=== PATIENT | female | born 1990 | race Caucasian/White ===

== ENCOUNTER 2023-07-14 14:01 | Outpatient (OUT) | payer SELFPAY ==
--- NOTE | 2023-07-14 14:51 | CA_ITS ---
Patient: URVASHI January. Exam Date: 07/14/2023 : 1990 Gender:F Ordering : WILLIAM SEGURA Admission #: [id number] Family : Order #: [id number] CLICK HERE TO VIEW EXAM ECHOCARDIOGRAM REPORT PROCEDURE: CA ECHO DOPPLER COMPLETE INDICATIONS: GREWAL, EDEMA COMPARISON: None. DESCRIPTION: COMPLETE ECHOCARDIOGRAM Real-time transthoracic echocardiography with 2D, M-mode, spectral and color flow Doppler performed. QUALITY: Technical quality was good. LEFT VENTRICLE: Normal chamber size. Mild concentric left ventricular hypertrophy. LV EF: Global left ventricular systolic function is normal. Visual estimation of left ventricular ejection fraction is 55% DIASTOLIC: Normal diastolic function. ATRIAL SEPTUM: Inadequately seen. LEFT ATRIUM: Normal chamber size. RIGHT ATRIUM: Normal chamber size. RIGHT VENTRICLE: Normal chamber size. Normal right ventricular systolic function. TRICUSPID VALVE: Normal mobility and thickness. No stenosis with trivial regurgitation. No evidence of pulmonary hypertension. RVSP 19mmHg MITRAL VALVE: Normal mobility and thickness. No evidence of mitral valve stenosis. Trivial mitral regurgitation. AORTIC VALVE: Normal trileaflet appearance. No visible sclerosis. Normal leaflet mobility. No evidence of aortic valve stenosis. No aortic regurgitation. AORTIC ROOT: Normal diameter and appearance. PULMONIC VALVE: Normal thickness and mobility. No stenosis. Trivial regurgitation. PERICARDIUM: No evidence of pericardial effusion. CONCLUSION: Global left ventricular systolic function is normal; visually estimated ejection fraction is 55 to 60%. Mild left ventricular hypertrophy. Normal diastolic function. The right ventricle is normal in size and systolic function. No significant valvular abnormalities. Adult Echocardiography Procedure Report Left Ventricle LVEDD (3.7 - 5.6 cm): 4.45 cm LVESD (2.2 - 4.0 cm): 3.10 cm LVIVS thickness (0.6 - 1.2 cm): 1.18 cm LVPW thickness (0.5 - 1.0 cm): 1.06 cm e': 0.09 m/s E - e': 4.43 LVOT Max Gradient: 2.42 mm[Hg] LVOT Area (cm2): 0.78 m/s Peak Velocity (LVOT): 0.78 m/s Mean Velocity (LVOT): 0.61 m/s LVOT Diameter 2.24 cm Left Atrium LA Volume Index (2D A2C): 24.54 ml/m2 Left Atrium Systolic Dimension: 3.49 cm Mitral Valve MV E to A Ratio: 0.79 Mitral Valve A-Wave Peak Velocity: 0.51 m/s Mitral Valve E-Wave Peak Velocity: 0.40 m/s Right Ventricle RV Internal Diastolic Dimension: 3.75 cm Aorta AO Root Diam: 3.35 cm Ascending Ao Diam: 3.18 cm Aortic Valve AoV Area (Peak Luciano): 2.68 cm2, 2.68 cm2 AoV Area (VTI): 2.51 cm2, 2.51 cm2 Peak Velocity(Antegrade Flow): 1.15 m/s Peak Gradient(Antegrade Flow): 5.26 mm[Hg] Mean Velocity(Antegrade Flow): 0.83 m/s Mean Gradient(Antegrade Flow): 3.14 mm[Hg] Velocity Time Integral: 21.60 cm Tricuspid Valve Peak Velocity (Regurgitant Flow): 1.87 m/s, 2.03 m/s Pulmonic Valve Mean Gradient: 1.75 mm[Hg], 1.70 mm[Hg] Mean Velocity: 0.62 m/s, 0.62 m/s Peak Velocity: 0.83 m/s Peak Gradient: 2.90 mm[Hg], 2.66 mm[Hg] Right Atrium Right Atrium Systolic Pressure: 34.93 ml, 34.93 ml Dictated by: Valeria Reynolds M.D. on 07/16/2023 at 09:53 Approved by: Valeria Reynolds M.D. on 07/16/2023 at 09:56
== END 2023-07-14 14:02 | disposition home or self-care (01) ==
LOC: CARD 14:06
PROVIDERS: PCP Nurse Practitioner Family; Visit Provider Nurse Practitioner
DX: R06.09 Other forms of dyspnea (principal)
CPT/HCPCS: 93306

== ENCOUNTER 2023-09-06 07:38 | Emergency (ER) | payer BC, SELFPAY ==
[2023-09-06 07:42] VITALS: BP 132/90; PULSE 94; RESP 18; TEMP 36.8; O2SAT 97; BMI 33.7
--- NOTE | 2023-09-06 07:54 | XR_ITS ---
The [address] [address] Patient Name: WELLINGTON LANDIN MRN: [id number] date: 1990 Sex: F Assigned Patient Location: ER Current Patient Location: ER Accession/Order Number: [id number] Exam Date: 09/06/2023 07:58 Report Date: 09/06/2023 08:15 At the request of: CORBIN ALVARADO Procedure: XR chest 1V EXAM: XR chest 1V INDICATION: cough. COMPARISON: None. TECHNIQUE: Single frontal view of the chest FINDINGS: Normal cardiomediastinal contours. No acute infiltrative process. No pleural effusion or pneumothorax. No acute osseous abnormality. XR/XR chest 1V IMPRESSION: No acute cardiopulmonary process. Electronically authenticated by: CARLOS PASCUAL Date: 09/06/2023 08:15
--- NOTE | 2023-09-06 07:55 | ED_ITS ---
HPI - General Adult General Chief complaint: Nausea/Vomiting/Diarrhea Stated complaint: NAUSEA AND VOMIT Time Seen by Provider: 09/06/23 07:41 Source: patient Mode of arrival: walk-in History of Present Illness HPI narrative: 33-year-old female presents for cough and vomiting and headache. She's been sick for a week and it started with cough. Initially it was nonproductive and now she is coughing up phlegm but she swallows it so she never sees it. Sided headache and has had some vomiting as well. No complaints to me of diarrhea. The headache is severe. Related Data Home Medications Medication Instructions Recorded Confirmed metoprolol tartrate 25 mg tablet 25 mg PO DAILY 09/06/23 09/06/23 sertraline 100 mg tablet 100 mg PO Q24H 09/06/23 09/06/23 Previous Rx's Medication Instructions Recorded khjbpzuyru-avvgbytmvirpw-gixqbinf 1 cap PO Q6H PRN pain #20 caps 09/06/23 50 mg-300 mg-40 mg capsule (Fioricet) ondansetron 4 mg disintegrating 4 mg PO Q6H PRN nausea and 09/06/23 tablet vomiting #20 tabs Allergies Allergy/AdvReac Type Severity Reaction Status Date / Time nalbuphine [From Nubain] Allergy Severe Verified 09/06/23 07:46 acetaminophen [From Vicodin] AdvReac Severe Vomiting Verified 09/06/23 07:46 hydrocodone [From Vicodin] AdvReac Severe Vomiting Verified 09/06/23 07:46 Review of Systems ROS Narrative A ten point review of systems is negative except as noted above. Exam Narrative Exam Narrative: Nurses note and vital signs reviewed and patient is not hypoxic. General: The patient appears well and in no apparent distress. Patient is resting comfortably on cart. Skin: Warm, dry, no pallor noted. There is no rash noted. Head: Normocephalic, atraumatic, neck supple, no nuchal rigidity Eye: Normal conjunctiva, no drainage Ears, Nose, Mouth, and Throat: oral mucosa is moist. Nares patent. no pharyngeal erythema or exudate Cardiovascular: Regular Rate and Rhythm Respiratory: Patient is in no distress, no accessory muscle use, lungs are clear to auscultation, no wheezing, rales or rhonchi Back: non-tender GI: soft and nontender Musculoskeletal: The patient has no evidence of calf tenderness, no pitting edema, symmetrical pulses noted bilaterally Neurological: A&O normal speech Psychiatric: Cooperative Constitutional Vital Signs, click to edit/add: Last Vital Signs Temp 98.3 F 09/06/23 07:42 Pulse 94 H 09/06/23 07:42 Resp 18 09/06/23 07:42 BP 132/90 09/06/23 07:42 Pulse Ox 97 09/06/23 07:42 O2 Del Method Room Air 09/06/23 07:42 Course Vital Signs Vital signs: Vital Signs Temperature 98.3 F 09/06/23 07:42 Pulse Rate 94 H 09/06/23 07:42 Respiratory Rate 18 09/06/23 07:42 Blood Pressure 132/90 09/06/23 07:42 Pulse Oximetry 97 09/06/23 07:42 Oxygen Delivery Method Room Air 09/06/23 07:42 Temperature 98.3 F 09/06/23 07:42 Pulse Rate 94 H 09/06/23 07:42 Respiratory Rate 18 09/06/23 07:42 Blood Pressure 132/90 09/06/23 07:42 Pulse Oximetry 97 09/06/23 07:42 Oxygen Delivery Method Room Air 09/06/23 07:42 Medical Decision Making MDM Narrative Medical decision making narrative: patient's workup is negative. She was given IV fluids and Toradol and Zofran and is disscharged home on Fioricet and Zofran. Antibiotic not indicated. My clinical impressions that she has a viral illness. Treatment diagnosis and follow-up were discussed with the patient. Differential Diagnosis Differential Diagnosis: pneumonia, Covid, strep throat, viral illness Lab Data Lab results reviewed: Yes I reviewed the patient's lab results Labs: Lab Results 09/06/23 09/06/23 Range/Units 08:09 08:12 WBC 8.2 (4.0-11.0) 10^3/uL RBC 4.36 (4.20-5.40) 10^6/uL Hgb 13.0 (12.0-16.0) g/dL Hct 39.8 (36.0-48.0) % MCV 91.3 (81.0-99.0) fL MCH 29.8 (26.7-34.0) pg MCHC 32.7 (29.9-35.2) g/dL RDW 13.2 (11.0-15.0) % Plt Count 252 (150-450) 10^3/uL MPV 10.7 (9.5-13.5) fL Neut % (Auto) 66.1 (43.0-75.0) % Lymph % (Auto) 23.6 (20.5-60.0) % [place] % (Auto) 5.3 (1.7-12.0) % Eos % (Auto) 4.4 (0.9-7.0) % Baso % (Auto) 0.4 (0.2-2.0) % Neut # (Auto) 5.4 (1.4-6.5) 10^3/uL Lymph # (Auto) 1.9 (1.2-3.8) 10^3/uL [place] # (Auto) 0.4 (0.3-0.8) 10^3/uL Eos # (Auto) 0.4 (0.0-0.7) 10^3/uL Baso # (Auto) 0.0 (0.0-0.1) 10^3/uL Abs Immat Gran (auto) 0.02 (0.00-0.03) 10^3/uL Imm/Tot Granulo (auto) 0.2 (0.0-0.5) % Sodium 137 (136-145) mmol/L Potassium 3.7 (3.5-5.1) mmol/L Chloride 103 (98-107) mmol/L Carbon Dioxide 27.0 (21.0-32.0) mmol/L Anion Gap 10.7 BUN 8.0 (7.0-18.0) mg/dL Creatinine 0.56 (0.55-1.02) mg/dL Est GFR ( Amer) >60 (>=60) Est GFR (Non-Af Amer) >60 (>=60) BUN/Creatinine Ratio 14.3 Glucose 111 H (74-106) mg/dL Calcium 8.5 (8.5-10.1) mg/dL SARS-CoV-2 (PCR) Negative (NEGATIVE) Streptococcus Screen Negative Imaging Data Chest x-ray: Radiologist's impression: Procedure: XR chest 1V EXAM: XR chest 1V INDICATION: cough. COMPARISON: None. TECHNIQUE: Single frontal view of the chest FINDINGS: Normal cardiomediastinal contours. No acute infiltrative process. No pleural effusion or pneumothorax. No acute osseous abnormality. IMPRESSION: No acute cardiopulmonary process. Electronically authenticated by: CARLOS PASCUAL Date: 09/06/2023 08:15 Discharge Plan Discharge Chief Complaint: Nausea/Vomiting/Diarrhea Clinical Impression: Viral syndrome Patient Disposition: Home, Self-Care Time of Disposition Decision: 09:02 Condition: Good Mode of Transportation: Private Vehicle Prescriptions / Home Meds: New uoysfpqkkv-aaryvbniqedyp-uxrc [Fioricet] 50-300-40 mg capsule 1 cap PO Q6H PRN (Reason: pain) Qty: 20 0RF ondansetron 4 mg tablet,disintegrating 4 mg PO Q6H PRN (Reason: nausea and vomiting) Qty: 20 0RF No Action metoprolol tartrate 25 mg tablet 25 mg PO DAILY sertraline 100 mg tablet 100 mg PO Q24H Instructions: Viral Syndrome (ED) Stand Alone Forms: Portal Instructions Referrals: KAMRAN VERA [Primary Care Provider] - 1 week
[2023-09-06] MEDS: 0.9 % SODIUM CHLORIDE 1,000 ML 1000 ML IV (08:06)
[2023-09-06] MEDS: ONDANSETRON PF 4 MG/2 ML VIAL IV (08:06)
[2023-09-06] MEDS: KETOROLAC TROMETHAMINE 30 MG/ML VIAL IVP (08:06)
[2023-09-06 08:36] LABS: Basophils Percent Auto 0.4 % (0.2-2.0); Eosinophils Absolute Auto 0.4 10^3/uL (0.0-0.7); Eosinophils Percent Auto 4.4 % (0.9-7.0); Hematocrit 39.8 % (36.0-48.0); Immature Granulocytes Abs Auto 0.02 10^3/uL (0.00-0.03); Immature Granulocytes Pct Auto 0.2 % (0.0-0.5); Lymphocytes Absolute Auto 1.9 10^3/uL (1.2-3.8); Lymphocytes Percent Auto 23.6 % (20.5-60.0); Mean Corpuscular HGB Conc 32.7 g/dL (29.9-35.2); Mean Corpuscular Hemoglobin 29.8 pg (26.7-34.0); Mean Corpuscular Volume 91.3 fL (81.0-99.0); Mean Platelet Volume 10.7 fL (9.5-13.5); Monocytes Absolute Auto 0.4 10^3/uL (0.3-0.8); Monocytes Percent Auto 5.3 % (1.7-12.0); Neutrophils Absolute Auto 5.4 10^3/uL (1.4-6.5); Neutrophils Percent Auto 66.1 % (43.0-75.0); Platelet Count 252 10^3/uL (150-450); Red Blood Count 4.36 10^6/uL (4.20-5.40); Red Cell Distribution Width 13.2 % (11.0-15.0); White Blood Count 8.2 10^3/uL (4.0-11.0)
[2023-09-06 08:42] LABS: Strep A Antigen Screen Negative
[2023-09-06 08:43] LABS: Internal Control Within Normal Limits
[2023-09-06 08:44] LABS: Anion Gap 10.7; BUN Creatinine Ratio 14.3; Calcium 8.5 mg/dL (8.5-10.1); Chloride 103 mmol/L (98-107); Estimated GFR (African America >60 (>=60); Estimated GFR (Non-African Ame >60 (>=60); Glucose 111 mg/dL (74-106); Potassium 3.7 mmol/L (3.5-5.1); Sodium 137 mmol/L (136-145)
[2023-09-06 08:56] LABS: SARS-CoV-2 Ag NEGATIVE (NEGATIVE)
[2023-09-06 13:20] LABS: SARS-CoV-2 NAA NOT DETECTED (NOT DETECTE)
== END 2023-09-06 09:13 | disposition home or self-care (01) ==
PROVIDERS: Emergency Provider Emergency Medicine; PCP Nurse Practitioner Family
DX: B34.9 Viral infection, unspecified (principal); Z20.822 Contact with and (suspected) exposure to COVID-19; Z79.899 Other long term (current) drug therapy
CPT/HCPCS: 36415; 71045; 80048; 85025; 87070; 87635; 87811; 87880; 96361; 96374; 96375; 99285

== ENCOUNTER 2023-09-16 12:39 | Outpatient (OUT) | payer BC, SELFPAY ==
[2023-09-16 13:07] LABS: Basophils Percent Auto 0.6 % (0.2-2.0); Eosinophils Absolute Auto 0.4 10^3/uL (0.0-0.7); Eosinophils Percent Auto 5.2 % (0.9-7.0); Hemoglobin 12.5 g/dL (12.0-16.0); Immature Granulocytes Abs Auto 0.02 10^3/uL (0.00-0.03); Immature Granulocytes Pct Auto 0.3 % (0.0-0.5); Lymphocytes Absolute Auto 1.8 10^3/uL (1.2-3.8); Lymphocytes Percent Auto 27.4 % (20.5-60.0); Mean Corpuscular HGB Conc 32.1 g/dL (29.9-35.2); Mean Corpuscular Hemoglobin 29.2 pg (26.7-34.0); Mean Corpuscular Volume 91.1 fL (81.0-99.0); Mean Platelet Volume 10.2 fL (9.5-13.5); Monocytes Absolute Auto 0.5 10^3/uL (0.3-0.8); Monocytes Percent Auto 6.9 % (1.7-12.0); Neutrophils Percent Auto 59.6 % (43.0-75.0); Platelet Count 267 10^3/uL (150-450); Red Blood Count 4.28 10^6/uL (4.20-5.40); Red Cell Distribution Width 13.1 % (11.0-15.0); White Blood Count 6.7 10^3/uL (4.0-11.0)
[2023-09-16 13:51] LABS: Anion Gap 12.3; BUN Creatinine Ratio 16.1; Calcium 8.7 mg/dL (8.5-10.1); Carbon Dioxide 28.7 mmol/L (21.0-32.0); Chloride 102 mmol/L (98-107); Estimated GFR (African America >60 (>=60); Estimated GFR (Non-African Ame >60 (>=60); Glucose 85 mg/dL (74-106); Sodium 139 mmol/L (136-145)
== END 2023-09-16 12:40 | disposition home or self-care (01) ==
LOC: LAB 12:40
PROVIDERS: PCP Family Medicine; Visit Provider Internal Medicine Cardiovascular Disease
DX: Z01.818 Encounter for other preprocedural examination (principal)
CPT/HCPCS: 36415; 80048; 85025

== ENCOUNTER 2023-10-20 14:51 | Emergency (ER) | payer BC, SELFPAY ==
[2023-10-20] VITALS (15 sets, daily range): BP systolic 112–130; BP diastolic 78–97; PULSE 112–163; RESP 11–42; TEMP 37.1; O2SAT 96–99
--- NOTE | 2023-10-20 14:59 | ECG_ITS ---
The [facility] Test Date: 2023-10-20 Pat Name: WELLINGTON LANDIN Department: Room: - Gender: Female [employer]: : 1990 Requested By: CASS JOY Order Number: [id number] Reading MD: CHRISTIANO FARLEY Measurements Intervals [place] Rate: 135 P: 61 [place]: 150 QRS: 107 QRSD: 86 T: 23 QT: 292 QTc: 371 Interpretive Statements 1120 Sinus tachycardia 7100 Abnormal right axis deviation 9140 abnormal rhythm ECG No previous ECG available for comparison Electronically Signed On 10-21-2023 7:06:26 EST by CHRISTIANO FARLEY
--- NOTE | 2023-10-20 14:59 | XR_ITS ---
The [address] [address] Patient Name: WELLINGTON LANDIN MRN: [id number] date: 1990 Sex: F Assigned Patient Location: ER Current Patient Location: ER Accession/Order Number: [id number] Exam Date: 10/20/2023 15:38 Report Date: 10/20/2023 15:55 At the request of: CORBIN ALVARADO Procedure: XR chest 1V EXAM: XR chest 1V HISTORY: SOB, cough COMPARISON: Chest study dated 09/06/2023 TECHNIQUE: AP view of the chest was obtained with portable technique at 3:34 PM. FINDINGS: Heart and mediastinal contours are unremarkable in appearance. No obvious focal infiltrate or consolidation. No obvious pneumothorax. Bony structures appear grossly intact. XR/XR chest 1V IMPRESSION: No acute process seen in the chest. Electronically authenticated by: JANES RUSSELL Date: 10/20/2023 15:55
--- NOTE | 2023-10-20 15:04 | ED_ITS ---
HPI - General Adult General Chief complaint: Upper Respiratory Infection Stated complaint: FLU LIKE SYMPTOMS Time Seen by Provider: 10/20/23 14:54 Source: patient Mode of arrival: walk-in Limitations: no limitations History of Present Illness HPI narrative: 33-year-old female presents to the emergency department for a constellation of symptoms. She is complaining of cough and congestion and she woke up from a nap forty-five minutes ago and her heart was racing she has a history of SVT. she states she had a fever at home today. She's been taking all her medications. She has had these upper respiratory infection symptoms for several months. Related Data Home Medications Medication Instructions Recorded Confirmed metoprolol tartrate 25 mg tablet 25 mg PO DAILY 09/06/23 10/20/23 sertraline 100 mg tablet 100 mg PO Q24H 09/06/23 10/20/23 bupropion HCl 150 mg 24 hr tablet, 150 mg PO DAILY 10/20/23 10/20/23 extended release cetirizine 10 mg tablet 10 mg PO DAILY 10/20/23 10/20/23 Previous Rx's Medication Instructions Recorded cuvqlcydge-uwwzlwbkoylwj-kdlkpvtv 1 cap PO Q6H PRN pain #20 caps 09/06/23 50 mg-300 mg-40 mg capsule (Fioricet) benzonatate 100 mg capsule 100 mg PO TID PRN cough #20 caps 10/20/23 doxycycline hyclate 100 mg capsule 100 mg PO BID 10 days #20 caps 10/20/23 Allergies Allergy/AdvReac Type Severity Reaction Status Date / Time nalbuphine [From Nubain] Allergy Severe Verified 09/06/23 07:46 hydrocodone [From Vicodin] AdvReac Severe Vomiting Verified 09/06/23 07:46 Review of Systems ROS Narrative A ten point review of systems is negative except as noted above. PFSH PFSH Social History Smoking status: Never smoker Exam Narrative Exam Narrative: Nurses note and vital signs reviewed and patient is not hypoxic. General: The patient appears well and in no apparent distress. Patient is resting comfortably on cart. Skin: Warm, dry, no pallor noted. There is no rash noted. Head: Normocephalic, atraumatic Eye: Normal conjunctiva, no drainage Ears, Nose, Mouth, and Throat: oral mucosa is moist. Nares patent. Cardiovascular: Regular Rate and Rhythm, tachycardic Respiratory: Patient is in no distress, no accessory muscle use, lungs are clear to auscultation, no wheezing, rales or rhonchi Back: non-tender GI: soft and nontender Musculoskeletal: The patient has no evidence of calf tenderness, no pitting edema, symmetrical pulses noted bilaterally Neurological: A&O, normal speech Psychiatric: Cooperative Constitutional Vital Signs, click to edit/add: Last Vital Signs Temp 98.8 F 10/20/23 14:55 Pulse 112 H 10/20/23 16:40 Resp 20 10/20/23 16:40 BP 120/79 10/20/23 16:30 Pulse Ox 98 10/20/23 16:40 O2 Del Method Room Air 10/20/23 14:55 Course Vital Signs Vital signs: Vital Signs Temperature 98.8 F 10/20/23 14:55 Pulse Rate 147 H 10/20/23 14:55 Respiratory Rate 18 10/20/23 14:55 Blood Pressure 124/90 10/20/23 14:55 Pulse Oximetry 99 10/20/23 14:55 Oxygen Delivery Method Room Air 10/20/23 14:55 Temperature 98.8 F 10/20/23 14:55 Pulse Rate 112 H 10/20/23 16:40 Respiratory Rate 20 10/20/23 16:40 Blood Pressure 120/79 10/20/23 16:30 Pulse Oximetry 98 10/20/23 16:40 Oxygen Delivery Method Room Air 10/20/23 14:55 Medical Decision Making MDM Narrative Medical decision making narrative: the patient presented tachycardic but her heart rate has come down significantly with IV fluids and she feels improved. Workup is negative including Covid, influenza, and chest x-ray testing. Treatment diagnosis and follow-up were discussed with the patient. Differential Diagnosis Differential Diagnosis: dehydration, Covid, influenza, pneumonia Lab Data Lab results reviewed: Yes I reviewed the patient's lab results Labs: Lab Results 10/20/23 10/20/23 Range/Units 15:03 15:06 WBC 5.1 (4.0-11.0) 10^3/uL RBC 4.40 (4.20-5.40) 10^6/uL Hgb 12.9 (12.0-16.0) g/dL Hct 40.0 (36.0-48.0) % MCV 90.9 (81.0-99.0) fL MCH 29.3 (26.7-34.0) pg MCHC 32.3 (29.9-35.2) g/dL RDW 13.2 (11.0-15.0) % Plt Count 233 (150-450) 10^3/uL MPV 10.7 (9.5-13.5) fL Neut % (Auto) 79.3 H (43.0-75.0) % Lymph % (Auto) 8.4 L (20.5-60.0) % [place] % (Auto) 7.4 (1.7-12.0) % Eos % (Auto) 3.7 (0.9-7.0) % Baso % (Auto) 0.8 (0.2-2.0) % Neut # (Auto) 4.1 (1.4-6.5) 10^3/uL Lymph # (Auto) 0.4 L (1.2-3.8) 10^3/uL [place] # (Auto) 0.4 (0.3-0.8) 10^3/uL Eos # (Auto) 0.2 (0.0-0.7) 10^3/uL Baso # (Auto) 0.0 (0.0-0.1) 10^3/uL Abs Immat Gran (auto) 0.02 (0.00-0.03) 10^3/uL Imm/Tot Granulo (auto) 0.4 (0.0-0.5) % Sodium 138 (136-145) mmol/L Potassium 3.7 (3.5-5.1) mmol/L Chloride 103 (98-107) mmol/L Carbon Dioxide 27.3 (21.0-32.0) mmol/L Anion Gap 11.4 BUN 7.0 (7.0-18.0) mg/dL Creatinine 0.66 (0.55-1.02) mg/dL Est GFR ( Amer) >60 (>=60) Est GFR (Non-Af Amer) >60 (>=60) BUN/Creatinine Ratio 10.6 Glucose 133 H (74-106) mg/dL Calcium 8.4 L (8.5-10.1) mg/dL Serum HCG, Qual Negative (NEGATIVE) SARS-CoV-2 (PCR) Negative (NEGATIVE) Influenza Type A Ag Negative Influenza Type B Ag Negative Imaging Data Chest x-ray: Radiologist's impression: Procedure: XR chest 1V EXAM: XR chest 1V HISTORY: SOB, cough COMPARISON: Chest study dated 09/06/2023 TECHNIQUE: AP view of the chest was obtained with portable technique at 3:34 PM. FINDINGS: Heart and mediastinal contours are unremarkable in appearance. No obvious focal infiltrate or consolidation. No obvious pneumothorax. Bony structures appear grossly intact. IMPRESSION: No acute process seen in the chest. Electronically authenticated by: JANES RUSSELL Date: 10/20/2023 15:55 ECG Data Attestation: I personally reviewed and interpreted this ECG as follows: (EKG on my interpretation shows sinus tachycardia) Discharge Plan Discharge Chief Complaint: Upper Respiratory Infection Clinical Impression: Upper respiratory infection Patient Disposition: Home, Self-Care Time of Disposition Decision: 16:47 Condition: Good Mode of Transportation: Private Vehicle Prescriptions / Home Meds: New doxycycline hyclate 100 mg capsule 100 mg PO BID 10 Days Qty: 20 0RF benzonatate 100 mg capsule 100 mg PO TID PRN (Reason: cough) Qty: 20 0RF No Action bupropion HCl 150 mg tablet extended release 24 hr 150 mg PO DAILY cetirizine 10 mg tablet 10 mg PO DAILY metoprolol tartrate 25 mg tablet 25 mg PO DAILY sertraline 100 mg tablet 100 mg PO Q24H edntcsdusv-mqjtuwrobmddy-yslt [Fioricet] 50-300-40 mg capsule 1 cap PO Q6H PRN (Reason: pain) Qty: 20 0RF Instructions: Upper Respiratory Infection (ED) Stand Alone Forms: Portal Instructions Referrals: CASS JOY [Primary Care Provider] - 1 week
[2023-10-20] MEDS: 0.9 % SODIUM CHLORIDE 1,000 ML 1000 ML IV ×2 (15:13→16:14)
[2023-10-20 15:28] LABS: Basophils Percent Auto 0.8 % (0.2-2.0); Eosinophils Absolute Auto 0.2 10^3/uL (0.0-0.7); Eosinophils Percent Auto 3.7 % (0.9-7.0); Hemoglobin 12.9 g/dL (12.0-16.0); Immature Granulocytes Abs Auto 0.02 10^3/uL (0.00-0.03); Immature Granulocytes Pct Auto 0.4 % (0.0-0.5); Lymphocytes Absolute Auto 0.4 10^3/uL (1.2-3.8); Lymphocytes Percent Auto 8.4 % (20.5-60.0); Mean Corpuscular HGB Conc 32.3 g/dL (29.9-35.2); Mean Corpuscular Hemoglobin 29.3 pg (26.7-34.0); Mean Corpuscular Volume 90.9 fL (81.0-99.0); Mean Platelet Volume 10.7 fL (9.5-13.5); Monocytes Absolute Auto 0.4 10^3/uL (0.3-0.8); Monocytes Percent Auto 7.4 % (1.7-12.0); Neutrophils Absolute Auto 4.1 10^3/uL (1.4-6.5); Neutrophils Percent Auto 79.3 % (43.0-75.0); Platelet Count 233 10^3/uL (150-450); Red Cell Distribution Width 13.2 % (11.0-15.0); White Blood Count 5.1 10^3/uL (4.0-11.0)
[2023-10-20 15:41] LABS: Influenza Virus A Antigen Negative; Influenza Virus B Antigen Negative; Internal Control Within Normal Limits
[2023-10-20 15:42] LABS: SARS-CoV-2 Ag NEGATIVE (NEGATIVE)
[2023-10-20 15:49] LABS: Anion Gap 11.4; BUN Creatinine Ratio 10.6; Calcium 8.4 mg/dL (8.5-10.1); Carbon Dioxide 27.3 mmol/L (21.0-32.0); Chloride 103 mmol/L (98-107); Estimated GFR (African America >60 (>=60); Estimated GFR (Non-African Ame >60 (>=60); Glucose 133 mg/dL (74-106); HCG Qualitative NEGATIVE (NEGATIVE); Potassium 3.7 mmol/L (3.5-5.1); Sodium 138 mmol/L (136-145)
[2023-10-22 16:03] LABS: SARS-CoV-2 NAA NOT DETECTED (NOT DETECTE)
== END 2023-10-20 17:14 | disposition home or self-care (01) ==
PROVIDERS: Emergency Provider Emergency Medicine; PCP Family Medicine
DX: J06.9 Acute upper respiratory infection, unspecified (principal)
CPT/HCPCS: 36415; 71045; 80048; 84703; 85025; 87635; 87804; 87811; 93005; 99285

== ENCOUNTER 2023-10-22 12:38 | Emergency (ER) | payer BC, SELFPAY ==
[2023-10-22 12:45] VITALS: BP 121/89; PULSE 102; RESP 18; TEMP 36.9; O2SAT 98; BMI 33.7
--- OUTSIDE RECORDS SUMMARY | 2023-10-22 12:45 | XMS_ITS | CCD ---
Author Name Unknown Address [address] [place] [address] Organization [facility] Care Team Providers Care Bander And Cellophaner Machine Name Role Phone Ny Vera Unavailable Shivani Rincon Unavailable [place] VERA Admitting Unavailable [place] VERA Attending [facility]available [facility] MIR Primary Care Unavailable [place] VERA Consulting Unavailable NASIM TORRES Admitting Unavailable NASIM TORRES Attending Unavailable NY VERA Primary Care Unavailable NASIM TORRES Consulting Unavailable Radha Nash Unavailable WILLIAM SEGURA Attending Unavailable CHANG GARZA Attending Unavailable CHANG GARZA Admitting Unavailable CHANG GARZA Attending Unavailable CHANG GARZA Referring Unavailable CHANG GARZA Referring Unavailable Rene Costa Attending Unavailable Rene Costa Attending Unavailable Rene Costa Attending Unavailable Allergies Allergy Classification Reported Allergen(s) Allergy Type Date of Onset Reaction(s) Facility (10 sources) Acetaminophen / HYDROcodone; Translations: [Vicodin] Drug Allergy 10-15-20 15 vomiting [facility] Repository (10 sources) Nalbuphine; Translations: [Nubain] Drug Allergy rebound migraine [facility] Repository (8 sources) Triptans Propensity to adverse reactions due to cardiac hx [facility] Other (1 source) Acetaminophen / HYDROcodone; Translations: [HYDROCODONE-ACET AMINOPHEN] Drug Allergy 06-02-20 [facility] Repository (1 source) Nalbuphine; Translations: [NALBUPHINE] Drug Allergy 06-02-20 [facility] Repository (1 source) ADHESIVE TAPE-SILICONES; Translations: [ADHESIVE TAPE-SILICONES] Propensity to adverse reactions to drug (disorder) 09-23-20 [facility] Repository Medications Current Medications Medication Drug Class(es) Dates Sig (Normalized) Sig (Original) cyproheptadine hydrochloride 4 mg oral tablet (8 sources) Start: 06-25-2021 take 1 tablet by mouth every twenty-four hours Cyproheptadine HCl 4 MG 1 tablet Orally qd for 30 days Jun, Active Start: 06-25-2021 Cyproheptadine HCl 4 MG 0.5 tablet for 2 weeks then 1 tablet Orally qd for 30 day(s) Jun, Active dexamethasone 4 mg oral tablet (1 source) Corticosteroid Start: 04-10-2022 Dexamethasone 4 MG 3 tablets daily for 3 days then 2 tablets daily for 3 days then 1 tablet daily for 3 days Orally Once a day for 9 days Apr, Active fluticasone propionate 0.05 mg/actuat metered dose nasal spray (1 source) Corticosteroid Start: 04-10-2022 take 1 spray(s) nasal route once daily Fluticasone Propionate 50 MCG/ACT 1 spray in each nostril Nasally Once a day for 30 day(s) Apr, Active metoprolol tartrate 25 mg oral tablet (8 sources) beta-Adrenergic Mike take 1 tablet by mouth every twelve hours Metoprolol Tartrate 25 MG 1 tablet with food Orally Twice a day take daily and may take up to two Active sertraline 100 mg oral tablet (8 sources) Serotonin Reuptake Inhibitor Start: 03-02-2020 take 1.5 tablets by mouth every twenty-four hours Zoloft 100 MG 1.5 tablet Orally Once a day for 90 days March, Active Completed/Discontinued Medications Medication Drug Class(es) Dates Sig (Normalized) Sig (Original) betamethasone 0.5 mg/ml / clotrimazole 10 mg/ml topical cream (3 sources) Azole Antifungal, Corticosteroid Start: 05-06-2022 Clotrimazole-Beta methasone 1-0.05 % 1 application Externally Twice a day for 5 day(s) May, Not-Taking Grstpwchns-RDYS-Odjd eine (8 sources) Butalbital-APAP- C affeine Not-Taking Butalbital-APAP- Caffeine Active Ketorolac (6 sources) Nonsteroidal Anti-inflammatory Drug, Cyclooxygenase Inhibitor Start: 07-22-2020 Toradol per 15 mg Jul, 60 mg mupirocin 0.02 mg/mg topical ointment (3 sources) RNA Synthetase Inhibitor Antibacterial Start: 05-06-2022 Mupirocin 2 % 1 application Externally Twice a day for 5 day(s) May, Not-Taking ondansetron 4 mg oral tablet (5 sources) Serotonin-3 Receptor Antagonist Start: 04-04-2023 take 1 tablet by mouth every eight hours as needed Ondansetron HCl 4 MG 1 tablet Orally every 8 hours as needed for 7 days Apr, Not-Taking Start: 12-27-2021 take 1 tablet by keaton th every eight hours as needed Ondansetron HCl 4 MG 1 tablet Orally every 8 hours as needed for 7 days Dec, Active Toradol 30 mg/ml (9 sources) Start: 04-30-2023 Toradol 30 mg/ ml Apr, 60 mg Start: 04-04-2023 Toradol 30 mg/ ml Apr, 60 mg Start: 12-27-2021 Toradol 30 mg/ ml Dec, 60 mg Problems Active Problems Problem Classification Problem Date Documented Date Episodic/Chronic Anxiety disorders (10 sources) Generalized anxiety disorder; Translations: [Generalized anxiety disorder] Onset: 09-30-2021 Resolved: 12-23-2021 Chronic Cardiac dysrhythmias (10 sources) Paroxysmal supraventricular tachycardia; Translations: [Supraventricular tachycardia] Onset: 06-14-2023 Chronic Esophageal disorders (8 sources) Gastroesophageal reflux disease; Translations: [Gastro-esophageal reflux disease without esophagitis] Chronic Headache; including migraine (20 sources) Refractory migraine without aura; Translations: [Migraine without aura, intractable, without status migrainosus] Onset: 12-27-2021 Resolved: 04-10-2022 Chronic Malaise and fatigue (8 sources) Fatigue; Translations: [Chronic fatigue, unspecified] Chronic Mood disorders (9 sources) Recurrent major depressive episodes, moderate ; Translations: [Major depressive disorder, recurrent, moderate] Onset: 04-10-2022 Resolved: 04-10-2022 Chronic Other upper respiratory disease (4 sources) Seasonal allergic rhinitis; Translations: [Other seasonal allergic rhinitis] Chronic Other upper respiratory disease (1 source) Other seasonal allergic rhinitis Onset: 04-10-2022 Resolved: 04-10-2022 Chronic Unclassified (1 source) Supraventricular tachycardia, unspecified; Translations: [Supraventricular tachycardia, unspecified] Onset: 08-03-2023 Past or Other Problems Problem Classification Problem Date Documented Date Episodic/Chronic Cardiac dysrhythmias (2 sources) Palpitations; Translations: [Palpitations] Onset: 06-02-2023 Episodic Other lower respiratory disease (6 sources) Other forms of dyspnea; Translations: [OTHER FORMS OF DYSPNEA] Onset: 05-21-2022 Episodic Other non-traumatic joint disorders (4 sources) Effusion, unspecified joint; Translations: [EFFUSION UNSPECIFIED JOINT] Onset: 07-20-2021 Episodic Other skin disorders (1 source) Rash and other nonspecific skin eruption Onset: 05-06-2022 Resolved: 05-06-2022 Episodic Residual codes; unclassified (2 sources) Localized edema; Translations: [Localized edema] Onset: 06-02-2023 Episodic Unclassified (1 source) Supraventricular tachycardia, unspecified; Translations: [Supraventricular tachycardia, unspecified] Onset: 09-23-2023 Results Test Name Value Interpretation Reference Range Facility Pre-Certification Formon Pre-Certification Form [id number] Normal [facility] HPon 09-23-2023 [facility] Electrophysiology Consult Note Reason for visit: SVT HPI: January Anne Marie Landin is a 33 y.o. 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 post ablation no tachycardia was induced as per the note. patient states that 3 months after the ablation she did well but thereafter started experiencing SVT as before. she has been on metoprolol for this and still experiencing breakthrough episodes. States she has noticed her palpitations have returned she is noticing more frequently. She states the episodes last anywhere from 1 minute to 1 hour and Valsalva maneuvers are not helping She denies chest pain, shortness of breath, LE edema, orthopnea. 01/17/2020 Cardiovascular Laboratory Report INDICATIONS FOR ELECTROPHYSIOLOGIC STUDY AND CATHETER ABLATION: The patient is a 29-year-old man with recurrent episodes of supraventricular tachycardia. These have been difficult to control with pharmacotherapy and for this reason, he will undergo electrophysiologic study to determine the nature of the tachycardia and then catheter ablation FINAL IMPRESSION: 1. Recurrent supraventricular tachycardia. 2. Typical AV tera reentrant tachycardia. 3. Comprehensive electrophysiologic study with coronary sinus cannulation and induction. 4. EPS after drug infusion. 5. Three-dimensional noncontact mapping. 6. Catheter mapping. 7. Fluoroscopy. 8. Conscious sedation. PMH: History reviewed. No pertinent past medical history. PSH: History reviewed. No pertinent surgical history. SH: Social Determinants of Health Tobacco Use: Not on file Alcohol Use: Not on file Financial Resource Strain: Not on file Food Insecurity: Not on file Transportation Needs: Not on file Physical Activity: Not on file Stress: Not on file Social Connections: Not on file Intimate Partner Violence: Not on file Depression: Not on file Housing Stability: Not on file Allergies: Allergies Allergen Reactions Hydrocodone-Acetaminophe n Nalbuphine Other Weight: @WEIGHT@ There were no vitals taken for this visit. Meds: No current facility-administered medications on file prior to encounter. Current Outpatient Medications on File Prior to Encounter Medication Sig Dispense Refill fluticasone (Flonase) 50 mcg/actuation nasal spray Administer 1 spray into each nostril in the morning. metoprolol tartrate (Lopressor) 25 mg tablet Take 1 tablet (25 mg) by mouth in the morning. 90 tablet 3 sertraline (Zoloft) 100 mg tablet Take 100 mg by mouth in the morning. ROS: Cardio Basic Cardiovascular Symptoms: no lightheadedness, no leg edema, no syncope, no orthopnea, no PND, no claudication, Constitutional Constitutional: no fever, no night sweats, no significant weight gain, no significant weight loss, no exercise intolerance Eyes Eyes: no dry eyes, no irritation, no vision change ENMT Ears: no difficulty hearing, no ear pain Nose: no frequent nosebleeds, Mouth/Throat: no sore throat, no bleeding gums, no snoring, no dry mouth, no mouth ulcers, no oral abnormalities, no teeth problems Respiratory Respiratory: no cough, no wheezing, no coughing up blood, no sleep apnea Musculoskeletal Musculoskeletal: no muscle aches, no muscle weakness, joint pain+, no back pain, no swelling in the extremities Integumentary Skin no rash, no ulcer, no varicosities, no discoloration, no pruritus Neurologic Neurologic: no loss of consciousness, no weakness, no numbness, no seizures, no dizziness, no headaches Psychiatric Psych: no depression, feeling safe in relationship, no alcohol abuse, Hematologic/Lymphatic Hematologic/Lymphatic no swollen glands, no bruising Physical Exam: Constitutional General Appearance: well-nourished, well-developed, appears stated age Level of Distress: comfortable Psychiatric Mental Status: alert, normal affect Orientation: oriented to time, place, and person Insight: good judgement Eyes Lids and Conjunctivae: non-injected, no xanthelasma ENMT Ears: no lesions on external ear Nose: no lesions on external nose Oropharynx: no cyanosis, no pallor Neck Neck: supple, trachea midline Carotid Arteries: bilateral normal upstroke, no bruits Jugular Veins: normal jugular venous pressure Thyroid: not enlarged Lungs Respiratory Effort: unlabored Chest Exam: normal curvature, no thoracic deformity Auscultation: clear, no wheezing, no rales, no rhonchi Cardiovascular Rate And Rhythm: regular Heart Sounds: normal S1, normal s2, no gallop Systolic Murmur: not heard Diastolic Murmur: not heard Extremities: no cyanosis, no edema, no peripheral signs of emboli Peripheral Pulses Radial Pulse: normal Abdomen Inspection and Palpation: soft, non distended, no bruit, non tender Musculoskeletal Inspection: no joint swelling Neurologic Gait: normal (more content not included)... Normal [facility] NURSNOTEon 09-23-2023 NURSNOTE RN educated pt on d/ c instructions. RN encouraged pt to voice any questions or concerns. Pt verbalizes no questions or concerns at this time. Normal [facility] Family Medicine Office/Clini c Noteon 09-21-2023 Family Medicine Office/Clinic Note HPI Staff Omaira is a 33 year old female presenting to establish care Establish Care: Depression/anxiety - Migraines. History: Any previous diagnosis: depression, chronic migraines History of seeing any specialist: no, neuro in past When was your last doctors visit: EDITH Alejandra Last provider: Any recent labs: nothing in the last year Health Maintenance UTD: Flu - nope, refused Pelvic/Pap: nope PHQ - 13 BRISEIDA - 16 Acute: Current issues/complaints: Cold symptoms and migraines - needs to discuss depression meds, not sure if sertraline is working any longer, pt titrated down due to being unable to get filled. Pt also presents with cough/rib pain on right side. Said seen in [facility] ED, no positive testing, negative for covid/strep/pneumonia, per pt. History of Present Illness Omaira Landin is a 33-year-old female who presents today to [facility] care. The patient has a history of chronic migraines, which she typically manages with Tylenol. The pain from these migraines is experienced in various parts of her head, including her eyes, temples, forehead, top of her head, and the occipital area of her head. The migraines are particularly concentrated in her eyes, temples, and frontal sinus area. She expresses that 99.9 percent of her headaches are migraines. She has a family history of chronic migraines, as her mother also suffered from them. Her mother was diagnosed with two large brain aneurysms on her brainstem 3 weeks before her , which had been growing for years according to her neurosurgeon. She rates the severity of her migraines as 9 out of 10. She has tried various preventative treatments, including all available antidepressants and an antihistamine, but has not yet tried any injectable migraine medications. She experiences at least 15 migraines per month. The last medication she was prescribed seemed to reduce the frequency of her migraines. For her tension headaches, she typically uses Tylenol and applies ice. Despite the severity of her headaches, she usually continues to work through them. She is currently withdrawing from her Zoloft because she could not get it refilled again. This is the 4th time she has withdrawn. She has not identified her feelings as depression, but rather as anger. An incident after the of her first child, where she yelled at her for incorrectly changing a diaper, is an example of this anger. She has not tried the medication Lexapro. Additionally, she does not have a smoking habit. She is experiencing gastrointestinal issues. Her typical bowel movements are almost entirely liquid. She still has her gallbladder intact. She has several bowel movements each day, which can range from a consistency similar to peanut butter to a more liquid state. Occasionally, she experiences diarrhea in which she goes back and forth 9 times out of 10, which gradually turns into constipation, preventing her from having a bowel movement for up to 2 days. Consumption of ice cream seems to trigger a severe reaction in her digestive system. The patient is dealing with cardiac problems and is seeing a logistics project manager. She has been experiencing a cough and congestion for approximately 1 month. Her symptoms improved 2 weeks ago, but have since returned. Over the past 2 days, she has felt more of a pressure sensation. She has not consumed any caffeine or water today and does not take any allergy medication. She occasionally experiences sinus headaches, but they are not a frequent occurrence. Review of Systems PHQ Score Initial Depression Screen Score: 3 SCORE Physical Exam Vitals & Measurements T: 36.8 ?C(Temporal Artery) HR: 84(Peripheral) RR: 18 BP: 114/72 SpO2: 97% HT: 63 in HT: 159 cm WT: 87.7 kg WT: 192.94 lb BMI: 34.69 General: alert, no acute distress ENMT: oral mucosa moist, no pharyngeal erythema or exudate Cardiovascular: regular rate and rhythm, normal peripheral perfusion Respiratory: Lungs CTA, respirations non labored. No wheezing. Extremities: no deformity, no trauma Neurological: oriented x 4, LOC appropriate for age, CN II-XII intact, motor strength equal & normal bilaterally, speech normal Assessment/Plan 1. Recurrent major depression (F33.9: Major depressive disorder, recurrent, unspecified) At this time, we will start the patient on Wellbutrin and we will see the patient back in 4 weeks. We will get off the Zoloft as this may be causing some anxiety issues and see if the Wellbutrin handles better. 2. Anxiety (F41.9: Anxiety disorder, unspecified) Again, we will be trying the Wellbutrin instead of the Zoloft and see if this handles her symptoms much better. 3. Seasonal allergies (J30.2: Other seasonal allergic rhinitis) This may be the reason for the cough and sinus congestion since the patient has had swabbed for everything. We will try cetirizine at this time to see if this helps. 4. Migraine (G43.909: Migraine, unspecified, not intractable, without status migrainosus) We are going to try bot (more content not included)... Normal [facility] Comment on above: Result Comment: Elec tronically Signed By: Rene Costa MD\.br\Date and Time Signed: 09/21/23 12:54 EST\.br\Electronically Co-Signed By: Jina Flor\.br\Date and Time Co-Signed: 09/18/23 12:05 EST Ambulatory Visit Summaryon 1 11-18-2022 Ambulatory Visit Summary URVASHIJanuary :1990 Visit Date:09/18/2023 Ambulatory Visit Instructions Your Diagnosis Recurrent major depression Anxiety Seasonal allergies Migraine SVT (supraventricular tachycardia) Tension headache Chronic diarrhea Never smoked tobacco BMI 34.0-34.9,adult Your Care Team Attending Physician - Rene Costa MD Primary Care Physician - Rene Costa MD This Is Your Medications List APAP/butalbital/caffeine (APAP/butalbital/caffein e 300 mg-50 mg-40 mg oral capsule) metoprolol (Lopressor 25 mg oral tablet) sertraline (sertraline 100 mg Tab) Procedures Performed Ablation, delivery, Tubal ligation done, Tubes, [place] tooth. Discharge Vitals Temperature (Temporal Artery) 36.8 ?C Heart Rate (Peripheral) 84 Respiratory Rate 18 Blood Pressure 114/72 Height 159 cm Height 63 in Weight 87.7 kg Weight 192.94 lb BMI 34.69 What to do next Scheduled Follow-Up Appointments Thursday 8:40 AM EST With: Rene Costa MD Where: [facility] Medicine [place] Normal [facility] Orders Onlyon 09-15-2023 Orders Only [id number] 1990 F Date Provider Department Center 09/15/2023 FANNY CANTU [facility] No family history on file Normal [facility] Office Visiton 07-28-2023 Follow-up visit [id number] J 1990 F Date Provider Department Center 07/28/2023 Lorena-CHANG GARZA [facility] No family history on file Level of Service:32507 [place] OFFICE/OUTPATIENT NEW HIGH MDM 60-74 MINUTES Normal [facility] Office Visiton 06-02-2023 Follow-up visit [id number] Sona Landin 1990 F Date Provider Department Center 06/02/2023 Shalom-WILLIAM SEGURA [facility] No family history on file Level of Service:34623 [place] OFFICE/OUTPATIENT ESTABLISHED MOD MDM 30-39 MIN Normal [facility] BNPon 05-21-2022 Natriuretic peptide B (Bld) [Mass/Vol] 18.0 pg/mL Normal <=450.0 [facility] Comment on above: Performed By: #### B CORPORATE COMPLIANCE DIRECTOR, CMP #### [facility] Laboratory [address] [place] [address] Dr. Tammy Rogers CBC AUTO DIFFon 05-21-2022 BASO # 0.1 103/ul Normal 0.0-0.1 [facility] Comment on above: Performed By: #### C BC #### [facility] [address] [place] [address] Dr. Tammy Rogers Basophils/100 WBC (Bld) 0.6 % Normal 0.2-2.0 [facility] Comment on above: Performed By: #### C BC #### [facility] [address] [place] [address] Dr. Tammy Rogers EO # 0.3 103/ul Normal 0.0-0.7 [facility] Comment on above: Performed By: #### C BC #### [facility] [address] [place] [address] Dr. Tammy Rogers Eosinophils/100 WBC (Bld) 3.1 % Normal 0.9-7.0 [facility] Comment on above: Performed By: #### C BC #### [facility] [address] [place] [address] Dr. Tammy Rogers Erythrocyte distribution width (RBC) [Ratio] 13.6 % Normal 11.0-15.0 [facility] Comment on above: Performed By: #### C BC #### [facility] [address] [place] [address] Dr. Tammy Rogers Hematocrit (Bld) [Volume fraction] 42.0 % Normal 36.0-48.0 [facility] Comment on above: Performed By: #### C BC #### [facility] [address] [place] [address] Dr. Tammy Rogers Hemoglobin (Bld) [Mass/Vol] 13.7 g/dL Normal 12.0-16.0 [facility] Comment on above: Performed By: #### C BC #### [facility] [address] [place] [address] Dr. Tammy Rogers IG # 0.04 10e3/ul Critically high 0.00-0.03 [facility] Comment on above: Performed By: #### C BC #### [facility] [address] [place] [address] Dr. Tammy Rogers IG % 0.4 % Normal 0.0-0.5 [facility] Comment on above: Performed By: #### C BC #### [facility] [address] [place] [address] Dr. Tammy Rogers LYMPH # 2.1 103/ul Normal 1.2-3.8 [facility] Comment on above: Performed By: #### C BC #### [facility] [address] [place] [address] Dr. Tammy Rogers Lymphocytes/100 WBC (Bld) 23.1 % Normal 20.5-60.0 [facility] Comment on above: Performed By: #### C BC #### [facility] [address] [place] [address] Dr. Tammy Rogers MANUAL DIFF REQ NO Normal [facility] Comment on above: Performed By: #### C BC #### [facility] [address] [place] [address] Dr. Tammy Rogers MCH (RBC) [Entitic mass] 29.8 pg Normal 26.7-34.0 [facility] Comment on above: Performed By: #### C BC #### [facility] [address] [place] [address] Dr. Tammy Rogers MCHC (RBC) [Mass/Vol] 32.6 g/dL Normal 29.9-35.2 [facility] Comment on above: Performed By: #### C BC #### [facility] [address] [address] [address] Tammy Rogers MCV (RBC) [Entitic vol] 91.3 fL Normal 81.0-99.0 [facility] Comment on above: Performed By: #### C BC #### [facility] [address] [address] [address] Tammy Rogers MONO # 0.5 103/ul Normal 0.3-0.8 [facility] Comment on above: Performed By: #### C BC #### [facility] [address] [place] [address] Dr. Tammy Rogers Monocytes/100 WBC (Bld) 5.5 % Normal 1.7-12.0 [facility] Comment on above: Performed By: #### C BC #### [facility] [address] [place] [address] Dr. Tammy Rogers NEUT # 6.1 103/ul Normal 1.4-6.5 [facility] Comment on above: Performed By: #### C BC #### [facility] [address] [place] [address] Dr. Tammy Rogers Neutrophils/100 WBC (Bld) 67.3 % Normal 43.0-75.0 [facility] Comment on above: Performed By: #### C BC #### [facility] [address] [place] [address] Dr. Tammy Rogers Platelet mean volume (Bld) [Entitic vol] 10.1 fL Normal 9.5-13.5 [facility] Comment on above: Performed By: #### C BC #### [facility] - [facility] [address] [place] [address] Dr. Tammy Rogers PLT 237 103/ul Normal 150-450 [facility] Comment on above: Performed By: #### C BC #### [facility] [address] [place] [address] Dr. Tammy Rogers RBC 4.60 106/ul Normal 4.20-5.40 [facility] Comment on above: Performed By: #### C BC #### [facility] [address] [place], [place] [address] Dr. Tammy Rogers WBC 9.1 103/ul Normal 4.0-11.0 [facility] Comment on above: Performed By: #### C BC #### [facility] [address] [place], [place] [address] Dr. Tammy Rogers ECHOCARDIO M/2D COMPLETEon 0 05-21-2022 ECHOCARDIO M/2D COMPLETE Patient: OMAIRA LANDIN Exam Date: 05/21/2022 : 1990 Gender:F Ordering : NASIM TORRES Admission #: [id number] Family : [place] VERA Order #: [id number] CLICK HERE TO VIEW EXAM ECHOCARDIOGRAM REPORT PROCEDURE: CARDIO PULMONARY ECHOCARDIO M/2D COMP INDICATIONS: Dyspnea on exertion, h/o ablation (2019) for SVT COMPARISON: None. DESCRIPTION: COMPLETE ECHOCARDIOGRAM Real-time transthoracic echocardiography with 2D, M-mode, spectral and color flow Doppler performed. QUALITY: Technical quality was good. LEFT VENTRICLE: Normal chamber size. Mild concentric left ventricular hypertrophy. LV EF: Normal left ventricular ejection fraction, (>55%). DIASTOLIC: Normal diastolic function. ATRIAL SEPTUM: Inadequately seen. LEFT ATRIUM: Normal chamber size. RIGHT ATRIUM: Normal chamber size. RIGHT VENTRICLE: Normal chamber size. Normal right ventricular systolic function. TRICUSPID VALVE: Normal mobility and thickness. No stenosis with no regurgitation. MITRAL VALVE: Normal mobility and thickness. No evidence of mitral valve stenosis. There is no mitral annular calcification. No mitral regurgitation. AORTIC VALVE: Normal trileaflet appearance. No visible sclerosis. Normal leaflet mobility. No evidence of aortic valve stenosis. No aortic regurgitation. AORTIC ROOT: Normal diameter and appearance. Ascending aorta is normal in size. PULMONIC VALVE: Not well visualized. No stenosis. No regurgitation. PERICARDIUM: No evidence of pericardial effusion. IVC: Collapses with inspirations. CONCLUSION: Global left ventricular systolic function is normal; visually estimated ejection fraction is 55 to 60%. Normal diastolic function. The right ventricle is normal in size and systolic function. No significant valvular abnormalities. Dictated by: Valeria Reynolds M.D. on 05/21/2022 at 16:45 Approved by: Valeria Reynolds M.D. on 05/21/2022 at 16:53 Normal [facility] PROF 14(COMP METB)on 05-21- 022 Albumin [Mass/Vol] 3.7 g/dL Normal 3.4-5.0 [facility] Comment on above: Performed By: #### B CORPORATE COMPLIANCE DIRECTOR, CMP #### [facility] [address] [place] [address] [address] Tammy Rogesr Albumin/Globulin [Mass ratio] 0.9 {ratio} Normal [facility] Comment on above: Performed By: #### B CORPORATE COMPLIANCE DIRECTOR, CMP #### [facility] [address] [place] [address] [address] Tammy Rogers ALP [Catalytic activity/Vol] 60 U/L Normal 46-116 [facility] Comment on above: Performed By: #### B CORPORATE COMPLIANCE DIRECTOR, CMP #### [facility] [address] [place] [address] [address] Tammy Rogers ALT [Catalytic activity/Vol] 146 U/L Critically high 14-59 [facility] Comment on above: Performed By: #### B CORPORATE COMPLIANCE DIRECTOR, CMP #### [facility] [address] [place] [address] [address] Tammy Rogers Anion gap [Moles/Vol] 13.3 mmol/L Normal [facility] Comment on above: Performed By: #### B CORPORATE COMPLIANCE DIRECTOR, CMP #### [facility] [address] [place] [address] [address] Tammy Rogers AST [Catalytic activity/Vol] 66 U/L Critically high 15-37 [facility] Comment on above: Performed By: #### B CORPORATE COMPLIANCE DIRECTOR, CMP #### [facility] [address] [place] [address] [address] Tammy Rogers Bilirubin [Mass/Vol] 0.3 mg/dL Normal 0.2-1.0 [facility] Comment on above: Performed By: #### B CORPORATE COMPLIANCE DIRECTOR, CMP #### [facility] [address] [place] [address] [address] Tammy Rogers Calcium [Mass/Vol] 9.0 mg/dL Normal 8.5-10.[address] [facility] Comment on above: Performed By: #### B CORPORATE COMPLIANCE DIRECTOR, CMP #### [facility] [address] [place] [address] [address] Tammy Rogers Chloride [Moles/Vol] 104 mmol/L Normal 98-107 [facility] Comment on above: Performed By: #### B CORPORATE COMPLIANCE DIRECTOR, CMP #### [facility] [address] [place] [address] Dr. Tammy Rogers CO2 [Moles/Vol] 24.7 mmol/L Normal 21.0-32.0 [facility] Comment on above: Performed By: #### B CORPORATE COMPLIANCE DIRECTOR, CMP #### [facility] [address] [place] [address] Dr. Tammy Rogers Creatinine [Mass/Vol] 0.60 mg/dL Normal 0.55-1.02 [facility] Comment on above: Performed By: #### B CORPORATE COMPLIANCE DIRECTOR, CMP #### [facility] [address] [place] [address] Dr. Tammy Rogers EGFR-AF SPANISH >60 Normal >=60 [facility] Comment on above: Performed By: #### B CORPORATE COMPLIANCE DIRECTOR, CMP #### [facility] [address] [place] [address] Dr. Tammy Rogers EGFR-NON AF SPANISH >60 Normal >=60 [facility] Comment on above: Performed By: #### B CORPORATE COMPLIANCE DIRECTOR, CMP #### [facility] [address] [place] [address] Dr. Tammy Rogers Globulin (S) [Mass/Vol] 3.9 g/dL Normal [facility] Comment on above: Performed By: #### B CORPORATE COMPLIANCE DIRECTOR, CMP #### [facility] [address] [place] [address] Dr. Tammy Rogers Glucose [Mass/Vol] 103 mg/dL Normal 74-106 [facility] Comment on above: Performed By: #### B CORPORATE COMPLIANCE DIRECTOR, CMP #### [facility] [address] [place] [address] Dr. Tammy Rogers Potassium [Moles/Vol] 4.0 mmol/L Normal 3.5-5.1 [facility] Comment on above: Performed By: #### B CORPORATE COMPLIANCE DIRECTOR, CMP #### [facility] [address] [place] [address] [address] Tammy Rogers Protein [Mass/Vol] 7.6 g/dL Normal 6.4-8.2 [facility] Comment on above: Performed By: #### B CORPORATE COMPLIANCE DIRECTOR, CMP #### [facility] [address] [place] [address] [address] Tammy Rogers Sodium [Moles/Vol] 138 mmol/L Normal 136-[address] [facility] Comment on above: Performed By: #### B CORPORATE COMPLIANCE DIRECTOR, CMP #### [facility] [address] [place] [address] Dr. Tammy Rogers Urea nitrogen [Mass/Vol] 8.0 mg/dL Normal 7.0-18.0 [facility] Comment on above: Performed By: #### B CORPORATE COMPLIANCE DIRECTOR, CMP #### [facility] [address] [place] [address] Dr. Tammy Rogers Urea nitrogen/Creatinin e [Mass ratio] 13.3 mg/mg Normal [facility] Comment on above: Performed By: #### B CORPORATE COMPLIANCE DIRECTOR, CMP #### [facility] [address] [place] [address] Dr. Tammy Rogers DIVINE EIA W/REFLEX 5 BIOMARKER Son 07-23-2021 DIVINE Direct Negative Normal Negative [facility] Comment on above: Performed By: #### A NARF #### [facility] [address] [place] [address] Dr. Tammy Rogers RHEUMATOID FACTORon 07-23-20 RA Latex Turbid. <10.0 Normal 0.0-13.9 [facility] Comment on above: Performed By: #### R F #### [facility] [address] [place] [address] Dr. Tammy Rogers CBC AUTO DIFFon 07-20-2021 BASO # 0.1 103/ul Normal 0.0-0.1 [facility] Comment on above: Performed By: #### C BC #### [facility] [address] [place] [address] Dr. Tammy Rogers Basophils/100 WBC (Bld) 0.7 % Normal 0.2-2.0 [facility] Comment on above: Performed By: #### C BC #### [facility] [address] [place] [address] Dr. Tammy Rogers EO # 0.3 103/ul Normal 0.0-0.7 [facility] Comment on above: Performed By: #### C BC #### [facility] [address] [place] [address] Dr. Tammy Rogers Eosinophils/100 WBC (Bld) 4.4 % Normal 0.9-7.0 [facility] Comment on above: Performed By: #### C BC #### [facility] [address] [place] [address] Dr. Tammy Rogers Erythrocyte distribution width (RBC) [Ratio] 13.3 % Normal 11.0-15.0 [facility] Comment on above: Performed By: #### C BC #### [facility] [address] [place] [address] Dr. Tammy Rogers Hematocrit (Bld) [Volume fraction] 41.2 % Normal 36.0-48.0 [facility] Comment on above: Performed By: #### C BC #### [facility] [address] [place] [address] Dr. Tammy Rogers Hemoglobin (Bld) [Mass/Vol] 13.3 g/dL Normal 12.0-16.0 [facility] Comment on above: Performed By: #### C BC #### [facility] [address] [place] [address] Dr. Tammy Rogers IG # 0.01 10e3/ul Normal 0.00-0.03 [facility] Comment on above: Performed By: #### C BC #### [facility] [address] [place] [address] Dr. Tammy Rogers IG % 0.1 % Normal 0.0-0.5 [facility] Comment on above: Performed By: #### C BC #### [facility] [address] [place] [address] Dr. Tammy Rogers LYMPH # 2.3 103/ul Normal 1.2-3.8 [facility] Comment on above: Performed By: #### C BC #### [facility] [address] [place] [address] Dr. Tammy Rogers Lymphocytes/100 WBC (Bld) 31.8 % Normal 20.5-60.0 [facility] Comment on above: Performed By: #### C BC #### [facility] [address] [place] [address] Dr. Tammy Rogers MANUAL DIFF REQ NO Normal [facility] Comment on above: Performed By: #### C BC #### [facility] [address] [place] [address] Dr. Tammy Rogers MCH (RBC) [Entitic mass] 29.3 pg Normal 26.7-34.0 [facility] Comment on above: Performed By: #### C BC #### [facility] [address] [place] [address] Dr. Tammy Rogers MCHC (RBC) [Mass/Vol] 32.3 g/dL Normal 29.9-35.2 [facility] Comment on above: Performed By: #### C BC #### [facility] [address] [place] [address] Dr. Tammy Rogers MCV (RBC) [Entitic vol] 90.7 fL Normal 81.0-99.0 [facility] Comment on above: Performed By: #### C BC #### [facility] [address] [place] [address] Dr. Tammy Rogers MONO # 0.4 103/ul Normal 0.3-0.8 [facility] Comment on above: Performed By: #### C BC #### [facility] [address] [place] [address] Dr. Tammy Rogers Monocytes/100 WBC (Bld) 4.8 % Normal 1.7-12.0 [facility] Comment on above: Performed By: #### C BC #### [facility] [address] [place] [address] Dr. Tammy Rogers NEUT # 4.3 103/ul Normal 1.4-6.5 [facility] Comment on above: Performed By: #### C BC #### [facility] [address] [place] [address] [address] Tammy Rogers Neutrophils/100 WBC (Bld) 58.2 % Normal 43.0-75.0 [facility] Comment on above: Performed By: #### C BC #### [facility] [address] [place] [address] [address] Tammy Rogers Platelet mean volume (Bld) [Entitic vol] 10.0 fL Normal 9.5-13.5 [facility] Comment on above: Performed By: #### C BC #### [facility] [address] [place] [address] Dr. Tammy Rogers PLT 239 103/ul Normal 150-450 [facility] Comment on above: Performed By: #### C BC #### [facility] [address] [place] [address] Dr. Tammy Rogers RBC 4.54 106/ul Normal 4.20-5.40 [facility] Comment on above: Performed By: #### C BC #### [facility] [address] [place] [address] Dr. Tammy Rogers WBC 7.3 103/ul Normal 4.0-11.0 [facility] Comment on above: Performed By: #### C BC #### [facility] [address] [place] [address] Dr. Tammy Rogers PROF 14(COMP METB)on 021 Albumin [Mass/Vol] 3.8 g/dL Normal 3.5-5.0 [facility] Comment on above: Performed By: #### U VERONICA, CMP #### [facility] [address] [place] [address] Dr. Tammy Rogers Albumin/Globulin [Mass ratio] 1.0 {ratio} Normal [facility] Comment on above: Performed By: #### U VERONICA, CMP #### [facility] [address] [place] [address] Dr. Tammy Rogers ALP [Catalytic activity/Vol] 55 U/L Normal 38-126 [facility] Comment on above: Performed By: #### U VERONICA, CMP #### [facility] [address] [place] [address] [address] Tammy Rogers ALT [Catalytic activity/Vol] 96 U/L Critically high 9-52 [facility] Comment on above: Performed By: #### U VERONICA, CMP #### [facility] [address] [place] [address] [address] Tammy Rogers Anion gap [Moles/Vol] 14.9 mmol/L Normal [facility] Comment on above: Performed By: #### U VERONICA, CMP #### [facility] [address] [place] [address] [address] Tammy Rogers AST [Catalytic activity/Vol] 38 U/L Critically high 14-36 [facility] Comment on above: Performed By: #### U VERONICA, CMP #### [facility] [address] [place] [address] [address] Tammy Rogers Bilirubin [Mass/Vol] 0.3 mg/dL Normal 0.2-1.3 [facility] Comment on above: Performed By: #### U VERONICA, CMP #### [facility] [address] [place] [address] [address] Tammy Rogers Calcium [Mass/Vol] 8.8 mg/dL Normal 8.4-10.2 [facility] Comment on above: Performed By: #### U VERONICA, CMP #### [facility] [address] [place] [address] [address] Tammy Rogers Chloride [Moles/Vol] 102 mmol/L Normal 98-107 [facility] Comment on above: Performed By: #### U VERONICA, CMP #### [facility] [address] [place] [address] [address] Tammy Rogers CO2 [Moles/Vol] 24.0 mmol/L Normal 22.0-30.0 [facility] Comment on above: Performed By: #### U VERONICA, CMP #### [facility] [address] [place] [address] [address] Tammy Rogers Creatinine [Mass/Vol] 0.59 mg/dL Normal 0.52-1.04 [facility] Comment on above: Performed By: #### U VERONICA, CMP #### [facility] [address] [place] [address] [address] Tammy Rogers EGFR-AF SPANISH >60 Normal >=60 [facility] Comment on above: Performed By: #### U VERONICA, CMP #### [facility] [address] [place] [address] [address] Tammy Rogers EGFR-NON AF SPANISH >60 Normal >=60 [facility] Comment on above: Performed By: #### U VERONICA, CMP #### [facility] [address] [place] [address] [address] Tammy Rogers Globulin (S) [Mass/Vol] 3.9 g/dL Normal [facility] Comment on above: Performed By: #### U VERONICA, CMP #### [facility] [address] [place] [address] [address] Tammy Rogers Glucose [Mass/Vol] 98 mg/dL Normal 74-[address] [facility] Comment on above: Performed By: #### U VERONICA, CMP #### [facility] [address] [place] [address] [address] Tammy Rogers Potassium [Moles/Vol] 3.9 mmol/L Normal 3.4-5.0 [facility] Comment on above: Performed By: #### U VERONICA, CMP #### [facility] [address] [place] [address] [address] Tammy Rogers Protein [Mass/Vol] 7.7 g/dL Normal 6.1-8.[address] [facility] Comment on above: Performed By: #### U VERONICA, CMP #### [facility] [address] [place] [address] [address] Tammy Rogers Sodium [Moles/Vol] 137 mmol/L Normal 137-[address] [facility] Comment on above: Performed By: #### U VERONICA, CMP #### [facility] [address] [place] [address] [address] Tammy Rogers Urea nitrogen [Mass/Vol] 10.0 mg/dL Normal 7.0-17.0 [facility] Comment on above: Performed By: #### U VERONICA, CMP #### [facility] [address] [place], [place] [address] Dr. Tammy Rogers Urea nitrogen/Creatinin e [Mass ratio] 16.9 mg/mg Normal [facility] Comment on above: Performed By: #### U VERONICA, CMP #### [facility] [address] [place], [place] [address] Dr. Tammy Rogers URIC ACID SERUMon 07-20-2021 Urate [Mass/Vol] 5.3 mg/dL Normal 2.5-6.2 [facility] Comment on above: Performed By: #### U VERONICA, CMP #### [facility] [address] [place], [place] [address] Dr. Tammy Rogers Cardiovascular Lab Reporton 01-17-2020 Cardiovascular Lab Report [facility] Patient Name: Urvashi [facility] Anne Marie MR #: [id number] Department of Physician: Rodo Knight M.D. Medicine Service Date: 01/17/2020 Division of Birthdate: 1990 Cardiology Room #: 3AB [id number] Adult [facility] Services [place] [address] Cardiovascular Laboratory Report INDICATIONS FOR ELECTROPHYSIOLOGIC STUDY AND CATHETER ABLATION: The patient is a 29-year-old man with recurrent episodes of supraventricular tachycardia. These have been difficult to control with pharmacotherapy and for this reason, he will undergo electrophysiologic study to determine the nature of the tachycardia and then catheter ablation. DESCRIPTION OF PROCEDURE: After written informed consent was obtained, he was brought to the pacemaker and electrophysiology laboratory in the fasting state. The right and left groins were prepped and draped in the usual manner. A 1% Xylocaine solution infiltrated need for local anesthesia. Utilizing percutaneous technique, the right and left femoral veins were cannulated under fluoroscopic guidance. Electrophysiologic catheters were guided into the high right atrium across the tricuspid valve to the His bundle position in the right atrial apex and also in the coronary sinus. Spontaneous intervals were measured and programmed electrical stimulation of the atrium and ventricle were performed. Intracardiac electrocardiographic recordings of the atrium, atrial activation, His bundle activation, and ventricular activation were recorded. Pacing of the of the right atrium and right ventricle were performed. During evaluation was noted that he had evidence for dual AV tera pathway conduction and AV tera reentrant tachycardia. He was placed on intravenous isoproterenol infusion and repeat programmed stimulation performed. Again, this demonstrated evidence for AV tera reentrant tachycardia of the typical form. Then, a steerable ablation catheter was fluoroscopically guided into position in the posterior aspect of the tricuspid anulus. Using catheter mapping and 3-dimensional noncontact mapping, a series of radiofrequency ablated lesions were delivered in the slow pathway region. This produced a slow junctional rhythm. Following this, repeat programmed stimulation demonstrated no evidence of slow pathway conduction and this was considered a successful endpoint. The catheters were removed and hemostasis obtained by direct pressure over the puncture site areas. Conscious sedation was maintained throughout the case with intravenous midazolam and fentanyl. He was returned to the holding area in stable hemodynamic condition. RESULTS OF ELECTROPHYSIOLOGIC STUDY: See enclosed data sheet. FINAL IMPRESSION: 1. Recurrent supraventricular tachycardia. 2. Typical AV tera reentrant tachycardia. 3. Comprehensive electrophysiologic study with coronary sinus cannulation and induction. 4. EPS after drug infusion. 5. Three-dimensional noncontact mapping. 6. Catheter mapping. 7. Fluoroscopy. 8. Conscious sedation. Electronically Signed by: Rodo Knight M.D. 01/17/2020 03:29 P Rodo Knight M.D. Date Dict: 01/17/2020/12:25 P/Rodo Knight M.D. Date Trans: 01/17/2020 01:06 P/tangela [id number] Normal [facility] Vital Signs Date Time Vital Sign Value Performing Clinician Facility 04-30-2023 17:25-0400 Body height 160.02 cm Radha Nash Other [facility] Other 04-30-2023 17:25-0400 Body mass index (BMI) [Ratio] 32.77 kg/m2 Radha Nash Other [facility] Other 04-30-2023 17:25-0400 Body temperature 99 [degF] Radha Nash Other [facility] Other 04-30-2023 17:25-0400 Body weight 83.92 kg Radha Nash Other [facility] Other 04-30-2023 17:25-0400 Respiratory rate 18 /min Radha Nash Other [facility] Other 04-30-2023 17:25-0400 SaO2% (BldA) [Mass fraction] 99 % Radha Nash Other [facility] Other 04-04-2023 13:20-0400 Body height 160.02 cm Shivani Rincon Other [facility] Other 04-04-2023 13:20-0400 Body mass index (BMI) [Ratio] 32.91 kg/m2 Shivani Rincon Other [facility] Other 04-04-2023 13:20-0400 Body temperature 98.2 [degF] Shivani Rincon Other [facility] Other 04-04-2023 13:20-0400 Body weight 84.28 kg Shivani Rincon Other [facility] Other 04-04-2023 13:20-0400 Respiratory rate 18 /min Shivani Rincon Other [facility] Other 04-04-2023 13:20-0400 SaO2% (BldA) [Mass fraction] 99 % Shivani Rincon Other [facility] Other 05-06-2022 14:30-0400 Body height 160.02 cm Ny Jody Other [facility] Other 05-06-2022 14:30-0400 Body mass index (BMI) [Ratio] 31.88 kg/m2 Ny Vera Other [facility] Other 05-06-2022 14:30-0400 Body temperature 98 [degF] Ny Vera Other [facility] Other 05-06-2022 14:30-0400 Body weight 81.65 kg Ny Vera Other [facility] Other 05-06-2022 14:30-0400 Diastolic blood pressure 86 mm[Hg] Ny Vera Other [facility] Other 05-06-2022 14:30-0400 Respiratory rate 18 /min Ny Vera Other [facility] Other 05-06-2022 14:30-0400 SaO2% (BldA) [Mass fraction] 100 % Ny Vera Other [facility] Other 05-06-2022 14:30-0400 Systolic blood pressure 122 mm[Hg] Ny Vera Other [facility] Other 04-10-2022 11:00-0400 Body height 160.02 cm Ny Vera Other [facility] Other 04-10-2022 11:00-0400 Body mass index (BMI) [Ratio] 32.41 kg/m2 Ny [place] Other [facility] Other 04-10-2022 11:00-0400 Body temperature 98 [degF] Ny Vera Other [facility] Other 04-10-2022 11:00-0400 Body weight 83.01 kg Ny Vera Other [facility] Other 04-10-2022 11:00-0400 Diastolic blood pressure 78 mm[Hg] Ny Vera Other [facility] Other 04-10-2022 11:00-0400 Respiratory rate 16 /min Ny Vera Other [facility] Other 04-10-2022 11:00-0400 SaO2% (BldA) [Mass fraction] 98 % Ny Vera Other [facility] Other 04-10-2022 11:00-0400 Systolic blood pressure 116 mm[Hg] Ny Vera Other [facility] Other 12-27-2021 18:50-0500 Body height 160.02 cm Shivani Rincon Other [facility] Other 12-27-2021 18:50-0500 Body mass index (BMI) [Ratio] 31.95 kg/m2 Shivani Rincon Other [facility] Other 12-27-2021 18:50-0500 Body temperature 97.8 [degF] Shivani Rincon Other [facility] Other 12-27-2021 18:50-0500 Body weight 81.83 kg Shivani Rincon Other [facility] Other 12-27-2021 18:50-0500 Diastolic blood pressure 80 mm[Hg] Shivani Rincon Other [facility] Other 12-27-2021 18:50-0500 Respiratory rate 18 /min Shivani Rincon Other [facility] Other 12-27-2021 18:50-0500 SaO2% (BldA) [Mass fraction] 99 % Shivani Rincon Other [facility] Other 12-27-2021 18:50-0500 Systolic blood pressure 144 mm[Hg] Shivani Rincon Other [facility] Other Encounters Encounter Date Encounter Type Care Provider Facility Start: 11-03-2023 ambulatory [facility] Start: 10-12-2023 End: 10-13-2023 ambulatory Rene Costa Facility:[facility] Hannah dalton Start: 09-23-2023 ambulatory [facility] Start: 09-23-2023 ambulatory [facility] Start: 09-18-2023 End: 09-19-2023 ambulatory Rene Costa Facility: [facility] Start: 07-28-2023 End: 07-28-2023 ambulatory [facility] Start: 06-02-2023 End: 06-02-2023 ambulatory WILLIAM [facility] Start: 04-30-2023 End: 04-30-2023 ambulatory Radha Nash Other [facility] Other Start: 04-30-2023 Office outpatient visit 15 minutes Radha Nash [facility] Start: 04-04-2023 End: 04-04-2023 ambulatory Shivani Rincon Other [facility] Other Start: 04-04-2023 Office outpatient visit 15 minutes Shivani Rincon [facility] Start: 05-21-2022 End: 05-22-2022 ambulatory NASIM TORRES Facility:[facility] Start: 05-06-2022 End: 05-06-2022 ambulatory Ny Jody Other [facility] Other Start: 05-06-2022 Office outpatient visit 15 minutes Ny Jody [facility] Start: 04-10-2022 End: 04-10-2022 ambulatory Ny Jody Other [facility] Other Start: 04-10-2022 Office outpatient visit 25 minutes Ny Jody [facility] Start: 03-19-2022 End: 03-19-2022 ambulatory Ny Jody Other [facility] Other Start: 03-19-2022 Telephone encounter Ny Breaul t [facility] Start: 12-27-2021 End: 12-27-2021 ambulatory Shivani Rincon Other [facility] Other Start: 12-27-2021 Office outpatient visit 15 minutes Shivani Rincon [facility] Start: 12-23-2021 End: 12-23-2021 ambulatory Ny Jody Other [facility] Other Start: 12-23-2021 Telephone encounter Ny Breaul t [facility] Start: 09-30-2021 End: 09-30-2021 ambulatory Ny Jody Other [facility] Other Start: 09-30-2021 Telephone encounter Ny Breaul t [facility] Start: 07-20-2021 End: 07-21-2021 ambulatory [place] JODY Facility:[facility] Payers Date Payer Category Payer Unknown [id number] 2022 [facility] [[email or web address]] [id number] 1989 Unknown [id number] 2.16.84 [id number] 1989 Unknown [id number] 2.16.84 [id number] 1989 Unknown [id number] 2.16.8 [id number] 1989 Unknown [id number] 2.16.8 [id number] 1989 Unknown [id number] 2.16.8 [id number] 1959 [facility] [[email or web address]] SUIAN [id number] Social History Date Type Detail Facility Unknown if ever smoked [facility] Other Sex Assigned At Sex Assigned At Bir th [facility] Other Clinical Notes 09-30-2021 to 09-23-2023 Note Date & Type Note Facility 09-23-2023 Note COMPREHENSIVE EP MARINE DY AND ATRIAL TACHYCARDIA ABLATION DATE OF PROCEDURE: 09/23/2023 PERFORMING PHYSICIAN: Dr. Chang Garza INDICATIONS FOR PROCEDURE: 1. History of symptomatic paroxysmal narrow complex tachycardia, refractory to medical therapy. CONSENT: Patient LOCATION: EP Lab PROCEDURAL SEDATION: Versed and Fentanyl. Moderate sedation was administered by the sedation nurse under my supervision and noted in the CVL log. Intraprocedural face to face sedation time: 149min. Monitoring: Cardiac telemetry, Blood pressure, continuous pulse oxymetry. FLUROSCOPY: 11min/ 80mGray EBL: 25cc SPECIMEN REMOVED: None PREPARATION: Preoperative antibiotics was administered. PROCEDURES PERFORMED: 1. Ultrasound guided vascular access for venous sheaths as documented below in procedure note. 2. Comprehensive EP study and intracardiac catheter ablation for SVT consistent with Atrial tachycardia. This includes right atrial recording and pacing, His bundle recording and right ventricular recording and pacing. 3. Intracardiac EP 3D mapping. 4. Coronary sinus recording and pacing to induce arrhythmia. 5. Induction of arrythmia and verification of ablation results using intravenous isoproterenol infusion. 6. Transeptal puncture and LA recording. 7. LV pacing 8. ICE recording 9. Fluroscopy 10. Sedation. PROCEDURE NOTE: 33 y.o. year old with past medical history of AVNRT ablation [address] Knight. 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 Post ablation no tachycardia was induced as per the note. Patient states that 3 months after the ablation she did well but thereafter started experiencing SVT as before. She has been on metoprolol for this and still experiencing breakthrough episode and the episodes last anywhere from 1 minute to 1 hour and Valsalva maneuvers are not helping. Given this, she had trialed beta-blockers, but still had symptoms and hence was brought to the EP lab for EP study and ablation. On the day of presentation, she was noted to be in sinus rhythm with no evidence of any pre-excitation. The risks, benefits and alternatives of the procedure were discussed with the patient and family who agreed to proceed. Please refer to my note for details of the discussion and of indications. Patient was brought to the EP lab in the post absorptive state. A procedural pause was performed verifying the patient, the procedure. The right and left groins were prepped and draped in the usual sterile fashion. Preoperative antibiotics was administered. Ultrasound was used to image the right and left femoral veins and it was noted to be patent and this was used for vessel entry and image stored insystem. After infiltration with 1% lidocaine, 4 venous sheaths were placed in the right. 5000U Heparin bolus was given and bolus given subsequently to target ACT above 250. Details of catheters placed as follows. RFV: 5Fx2 RV/RA/His EP Cath: Sharad Estrella/Baldemar, 8Fx2: Vasile changed to Ablation Biosense Irrigated Thermocool ST/SF, 8F: CS Catheter (EZ Steer) Once catheters were in position in RV, RA, CS, we decided to proceed with EP study. Baseline intervals were noted as follows AH:67ms, HV 45ms. Baseline right ventricular programmed stimulation showed no evidence of VA conduction at 600ms pacing. VEST was performed and VERP was noted at 600/240ms. Thereafter I proceeded to perform Atrial pacing from the Coronary sinus. AEST was performed with a 600ms drive train. While this was performed, the patient continued to have significant amount of PACs and narrow complex tyachycardia that was non sustained with no AH jump with the earliest activation noted simultaneously at proximal an distal CS suggesting an earlier site else where. I decided to map the earliest site with pentaray catheter. This was noted to be on the RA septum. So I decided to map the LA to ensure this was not an LA tachycardia. 6F sheath was upsized for 9F sheath for ICE catheter. Baseline images were taken and no MECCA thrombus was seen and neither was any pericardial effusion noted. Transeptal puncture was done using SL-1 sheath and Antonio needle under fluroscopic and ICE guidance. LA pressure was 16/4mmHg with HR of 93bpm. Vizigo sheath was exchanged for SL-1. Mapping performed revealed the earliest site to be on the septal aspect of LA anteriorly close to the mitral valve. This was right opposite to the earliest site on the RA. Ablation catheter was then advanced. His catheter was placed to monitor for AH interval as this was adjacent to the non coronary cusp. His point was marked and it was 2cms away. Mapping was then performed with ablation catheter and earliest site was 38ms with good unipolar with Q wave. Thermocool ST-SF irrigated ablation catheter was placed here and ablation done with 40W irrigation. No AH change was noted and no AV block seen. Thereafter, insurance ablations (more content not included)... [facility] 09-23-2023 Note Patient: Omaira hernandez Procedure Information Date/Time: 09/23/23 1330 Procedure: EP Study possible ablation Location: [facility] EP / [facility] (Cath) Providers: Chang Garza MD Clinical information reviewed: Allergies Meds Med Hx Surg Hx OB Status Fam Hx Soc Hx Physical Exam Airway Mallampati: II TM distance: >3 FB Neck ROM: full Cardiovascular Dental Pulmonary Abdominal Anesthesia Plan ASA 2 CSE Anesthetic plan and risks discussed with patient. Use of blood products discussed with patient who. Additional Equipment Requests [facility] 07-28-2023 Note [place] Electrophysiology Consult Note Reason for visit: Palpitations HPI: Omaira Landin is a 33 y.o. 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 post ablation no tachycardia was induced as per the note. patient states that 3 months after the ablation she did well but thereafter started experiencing SVT as before. she has been on metoprolol for this and still experiencing breakthrough episodes. States she has noticed her palpitations have returned she is noticing more frequently. She states the episodes last anywhere from 1 minute to 1 hour and Valsalva maneuvers are not helping She denies chest pain, shortness of breath, LE edema, orthopnea. 01/17/2020 Cardiovascular Laboratory Report INDICATIONS FOR ELECTROPHYSIOLOGIC STUDY AND CATHETER ABLATION: The patient is a 29-year-old man with recurrent episodes of supraventricular tachycardia. These have been difficult to control with pharmacotherapy and for this reason, he will undergo electrophysiologic study to determine the nature of the tachycardia and then catheter ablation FINAL IMPRESSION: 1. Recurrent supraventricular tachycardia. 2. Typical AV tera reentrant tachycardia. 3. Comprehensive electrophysiologic study with coronary sinus cannulation and induction. 4. EPS after drug infusion. 5. Three-dimensional noncontact mapping. 6. Catheter mapping. 7. Fluoroscopy. 8. Conscious sedation. PMH: No past medical history on file. PSH: No past surgical history on file. SH: Social Determinants of Health Tobacco Use: Not on file Alcohol Use: Not on file Financial Resource Strain: Not on file Food Insecurity: Not on file Transportation Needs: Not on file Physical Activity: Not on file Stress: Not on file Social Connections: Not on file Intimate Partner Violence: Not on file Depression: Not on file Housing Stability: Not on file Allergies: Allergies Allergen Reactions Hydrocodone-Acetaminophen Nalbuphine Other Weight: 86.2kg Visit Vitals BP 112/82 (BP Location: Left arm, Patient Position: Sitting) Pulse 82 Wt 86.2 kg (190 lb) SpO2 97% BMI 33.66 kg/m??? BSA 1.96 m??? Meds: Current Outpatient Medications on File Prior to Visit Medication Sig Dispense Refill fluticasone (Flonase) 50 mcg/actuation nasal spray USE 1 SPRAY INTO EACH NOSTRIL EVERY DAY FOR 30 DAYS metoprolol tartrate (Lopressor) 25 mg tablet Take 1 tablet (25 mg) by mouth in the morning. 90 tablet 3 sertraline (Zoloft) 100 mg tablet [DISCONTINUED] metoprolol tartrate (Lopressor) 25 mg tablet Take 1 tablet by mouth in the morning. No current facility-administered medications on file prior to visit. ROS: Cardio Basic Cardiovascular Symptoms: no lightheadedness, no leg edema, no syncope, no orthopnea, no PND, no claudication, Constitutional Constitutional: no fever, no night sweats, no significant weight gain, no significant weight loss, no exercise intolerance Eyes Eyes: no dry eyes, no irritation, no vision change ENMT Ears: no difficulty hearing, no ear pain Nose: no frequent nosebleeds, Mouth/Throat: no sore throat, no bleeding gums, no snoring, no dry mouth, no mouth ulcers, no oral abnormalities, no teeth problems Respiratory Respiratory: no cough, no wheezing, no coughing up blood, no sleep apnea Musculoskeletal Musculoskeletal: no muscle aches, no muscle weakness, joint pain+, no back pain, no swelling in the extremities Integumentary Skin no rash, no ulcer, no varicosities, no discoloration, no pruritus Neurologic Neurologic: no loss of consciousness, no weakness, no numbness, no seizures, no dizziness, no headaches Psychiatric Psych: no depression, feeling safe in relationship, no alcohol abuse, Hematologic/Lymphatic Hematologic/Lymphatic no swollen glands, no bruising Physical Exam: Constitutional General Appearance: well-nourished, well-developed, appears stated age Level of Distress: comfortable Psychiatric Mental Status: alert, normal affect Orientation: oriented to time, place, and person Insight: good judgement Eyes Lids and Conjunctivae: non-injected, no xanthelasma ENMT Ears: no lesions on external ear Nose: no lesions on external nose Oropharynx: no cyanosis, no pallor Neck Neck: supple, trachea midline Carotid Arteries: bilateral normal upstroke, no bruits Jugular Veins: normal jugular venous pressure Thyroid: not enlarged Lungs Respiratory Effort: unlabored Chest Exam: normal curvature, no thoracic deformity Auscultation: clear, no wheezing, no rales, no rhonchi Cardiovascular Rate And Rhythm: regular Heart Sounds: normal S1, normal s2, no gallop Systolic Murmur: not heard Diastolic Murmur: not heard Extremities: no cyanosis, no edema, no peripheral signs of emboli Peripheral Pulses Radial Pulse: normal Abdomen Ins (more content not included)... [facility] 06-14-2023 Note - history of AVNRT a blation 2019 - palpitations have returned so we will order 30-day event monitor to assess arrhythmia -I will have her take metoprolol tartrate 25 mg daily as needed for palpitations, she can take up to twice daily - we will set her up to follow-up with Dr. Garza to discuss event monitor results - no recent echo so we will get new echocardiogram [facility] 06-02-2023 Note Feels she can not ta ke a deep breathe and hving high hrs ROS [facility] 06-02-2023 Note [place] Electrophysiology Consult Note Reason for visit: 1 year follow up HPI: Omaira Landin is a 33 y.o. 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 she is here for 1 year follow-up. States she has noticed her palpitations have returned she is noticing more frequently. She has needed to take any metoprolol we discussed resuming metoprolol tartrate 25 mg daily for palpitation. previously in the past her palpitations began with and seem to have resolved especially after ablation. She has had very few and infrequent palpitations until the last several months. she denies chest pain, shortness of breath, LE edema, orthopnea. 01/17/2020 Cardiovascular Laboratory Report INDICATIONS FOR ELECTROPHYSIOLOGIC STUDY AND CATHETER ABLATION: The patient is a 29-year-old man with recurrent episodes of supraventricular tachycardia. These have been difficult to control with pharmacotherapy and for this reason, he will undergo electrophysiologic study to determine the nature of the tachycardia and then catheter ablation FINAL IMPRESSION: 1. Recurrent supraventricular tachycardia. 2. Typical AV tera reentrant tachycardia. 3. Comprehensive electrophysiologic study with coronary sinus cannulation and induction. 4. EPS after drug infusion. 5. Three-dimensional noncontact mapping. 6. Catheter mapping. 7. Fluoroscopy. 8. Conscious sedation. PMH: No past medical history on file. PSH: No past surgical history on file. SH: Social Determinants of Health Tobacco Use: Not on file Alcohol Use: Not on file Financial Resource Strain: Not on file Food Insecurity: Not on file Transportation Needs: Not on file Physical Activity: Not on file Stress: Not on file Social Connections: Not on file Intimate Partner Violence: Not on file Depression: Not on file Housing Stability: Not on file Allergies: Allergies Allergen Reactions Hydrocodone-Acetaminophen Nalbuphine Other Weight: 85.3kg Visit Vitals BP 114/86 (BP Location: Left arm, Patient Position: Sitting) Pulse 96 Wt 85.3 kg (188 lb) SpO2 97% BMI 33.30 kg/m??? BSA 1.95 m??? Meds: Current Outpatient Medications on File Prior to Visit Medication Sig Dispense Refill fluticasone (Flonase) 50 mcg/actuation nasal spray USE 1 SPRAY INTO EACH NOSTRIL EVERY DAY FOR 30 DAYS metoprolol tartrate (Lopressor) 25 mg tablet Take 1 tablet (25 mg) by mouth in the morning. 90 tablet 3 metoprolol tartrate (Lopressor) 25 mg tablet Take 1 tablet by mouth in the morning. sertraline (Zoloft) 100 mg tablet No current facility-administered medications on file prior to visit. ROS: Cardio Basic Cardiovascular Symptoms: no lightheadedness, no leg edema, no syncope, no orthopnea, no PND, no claudication, Constitutional Constitutional: no fever, no night sweats, no significant weight gain, no significant weight loss, no exercise intolerance Eyes Eyes: no dry eyes, no irritation, no vision change ENMT Ears: no difficulty hearing, no ear pain Nose: no frequent nosebleeds, Mouth/Throat: no sore throat, no bleeding gums, no snoring, no dry mouth, no mouth ulcers, no oral abnormalities, no teeth problems Respiratory Respiratory: no cough, no wheezing, no coughing up blood, no sleep apnea Musculoskeletal Musculoskeletal: no muscle aches, no muscle weakness, joint pain+, no back pain, no swelling in the extremities Integumentary Skin no rash, no ulcer, no varicosities, no discoloration, no pruritus Neurologic Neurologic: no loss of consciousness, no weakness, no numbness, no seizures, no dizziness, no headaches Psychiatric Psych: no depression, feeling safe in relationship, no alcohol abuse, Hematologic/Lymphatic Hematologic/Lymphatic no swollen glands, no bruising Physical Exam: Constitutional General Appearance: well-nourished, well-developed, appears stated age Level of Distress: comfortable Psychiatric Mental Status: alert, normal affect Orientation: oriented to time, place, and person Insight: good judgement Eyes Lids and Conjunctivae: non-injected, no xanthelasma ENMT Ears: no lesions on external ear Nose: no lesions on external nose Oropharynx: no cyanosis, no pallor Neck Neck: supple, trachea midline Carotid Arteries: bilateral normal upstroke, no bruits Jugular Veins: normal jugular venous pressure Thyroid: not enlarged Lungs Respiratory Effort: unlabored Chest Exam: normal curvature, no thoracic deformity Auscultation: clear, no wheezing, no rales, no rhonchi Cardiovascular Rate And Rhythm: regular Heart Sounds: normal S1, normal s2, no gallop Systolic Murmur: not heard Diastolic Murmur: not heard Extremities: no cyanosis, no edema, no peripheral signs of emboli Peripheral Pulses Radial Pulse: normal Abdomen Inspection and Palpation: soft, non distended, no bruit, non tender Musculoskeletal Inspection: no joint swelling (more content not included)... [facility] 04-30-2023 Evaluation note Encounter Date Diagnosis Assessment Notes Apr, Migraine without aura and without status migrainosus, not intractable (ICD-10 - G43.009) Consistent with migraine. Neuro exam without abnormality. Patient states she has responded to Toradol treatments in the past. Will give IM Toradol in office. Discussed no other NSAIDs for the rest of today. May resume ibuprofen or Aleve tomorrow. May use Tylenol as needed. Rest in dark quiet room. Avoid electronics use. Follow-up with PCP if not gradually improving over the next 1 to 2 days, ER if any significantly worsening pain. Patient verbalized understanding of treatment plan. [facility] Other 06-03-2023 Evaluation note* Encounter Date Diagnosis Assessment Notes Treatment Notes Treatment Clinical Notes Apr, Migraine with aura and without status migrainosus, not intractable (ICD-10 - G43.109) Typical migraine presentation for this patient, no red flag symptoms. Toradol 60 mg IM given to patient in clinic today. Take NSAID (ibuprofen/Motrin, naproxen/Aleve) and/or acetaminophen/Tylen ol as directed for pain. Do not start taking NSAIDs for at least 8 hours from time of Toradol injection. I will send an Rx of Zofran to use as needed. Avoid bright lights, loud noises, and strong odors, rest and get plenty of sleep. Drink plenty of fluids. Encourage the use of a headache diary. Follow up with PCP if migraines become more frequent or change as further evaluation and testing may be necessary. Immediate eval by ER if migraine does not resolve with treatment, becomes severe, changes in characteristic, nausea with vomiting, vision changes, fever, neck pain/stiffness, weakness, numbness, paralysis, impaired speech, confusion, lethargy. Note provided, no extension allowed. Patient verbalizes understanding and is agreeable to treatment plan. Patient left in stable condition. [facility] Other 07-05-2022 Evaluation note* Encounter Date Diagnosis Assessment Notes Treatment Notes Treatment Clinical Notes May, Skin macule or macular rash (ICD-10 - R21) apply mupirocin to the scabbed areas as discussed. Otherwise the cream should help with the other spots. [facility] Other 06-09-2022 Evaluation note* Encounter Date Diagnosis Assessment Notes Treatment Notes Treatment Clinical Notes Apr, Migraine with aura and without status migrainosus, not intractable (ICD-10 - G43.109) Continue current treatment since medication is working Apr, Seasonal allergic rhinitis, unspecified trigger (ICD-10 - J30.2) Take medication as directed. COntinue allergy medications. Use saline nasal spray may help with symptom relief. Follow up with primary care provider if symptoms persist as a therapy plan may need to be made. Apr, Moderate episode of recurrent major depressive disorder (ICD-10 - F33.1) Refilled current doses since medication is working well [facility] Other 05-18-2022 Evaluation note* Encounter Date Diagnosis Assessment Notes Treatment Notes Treatment Clinical Notes March, Migraine with aura and without status migrainosus, not intractable (ICD-10 - G43.109) [facility] Other 02-25-2022 Evaluation note* Encounter Date Diagnosis Assessment Notes Treatment Notes Treatment Clinical Notes Dec, Intractable migraine without aura and without status migrainosus (ICD-10 - G43.019) Typical migraine presentation for this patient, no red flag symptoms. Toradol 60 mg IM given to patient in clinic today. Will send in rx of Zofran to take as directed. Take NSAID (ibuprofen/Motrin, naproxen/Aleve) and/or acetaminophen/Tylen ol as directed for pain. Do not start taking NSAIDs for at least 8 hours from time of Toradol injection. Avoid bright lights, loud noises, and strong odors, rest and get plenty of sleep. Drink plenty of fluids. Encourage the use of a headache diary. Follow up with PCP if migraines become more frequent or change as further evaluation and testing may be necessary. Immediate eval by ER if migraine does not resolve with treatment, becomes severe, changes in characteristic, nausea with vomiting, vision changes, fever, neck pain/stiffness, weakness, numbness, paralysis, impaired speech, confusion, lethargy. Patient verbalizes understanding and is agreeable to treatment plan. Patient left in stable condition [facility] Other 02-21-2022 Evaluation note* Encounter Date Diagnosis Assessment Notes Treatment Notes Treatment Clinical Notes Dec, BRISEIDA (generalized anxiety disorder) (ICD-10 - F41.1) [facility] Other 11-29-2021 Evaluation note* Encounter Date Diagnosis Assessment Notes Treatment Notes Treatment Clinical Notes Sep, BRISEIDA (generalized anxiety disorder) (ICD-10 - F41.1) [facility] Other History general Narrative - Reported* Type Description Date Medical History SVT (supraventricular tachycardi a) Medical History Migraines with aura Medical History briseida Surgical History C sectionx2 Surgical History PE tubes Surgical History wisdom teeth extract Surgical History heart ablation Hospitalization History see above surg hx Hospitalization History tachycardia [facility] Other Summary Purpose Family History No Family History Records FoundNo Family History Records FoundNo Family History Records FoundNo Family History Records Found Advance Directives No Advanced Directives Records FoundNo Advanced Directives Records FoundNo Advanced Directives Records FoundNo Advanced Directives Records Found Additional Source Comments INFORMATION SOURCE (unrecogn ized section and content) DATE CREATED AUTHOR 07/17/2020 [facility] DATE CREATED AUTHOR AUTHOR'S ORGANIZ ATION 05/26/2022 [facility] DATE CREATED AUTHOR AUTHOR'S ORGANIZ ATION 10/02/2023 [facility] DATE CREATED AUTHOR AUTHOR'S ORGANIZ ATION 10/17/2023 [facility] REASON FOR VISIT (unrecogniz ed section and content) MIGRAIN FOR 3 DAYSMIGRAIN WI TH NAUSEAURASHFOLLOW UP MIGRAINES AND BRISEIDA, Luis DepressionMIGRAINE SINCE YESTERDAY FOR RECORDS PERTAINING TO PATIENTS WHO ARE OR HAVE BEEN ENROLLED IN A CHEMICAL DEPENDENCY/SUBSTANCEABUSE PROGRAM, SOME INFORMATION MAY BE OMITTED. This clinical summary was aggregated from multiple sources. Caution should be exercised in using it in the provision of clinical care. This summary normalizes information from multiple sources, and as a consequence, information in this document may materially change the coding, format and clinical context of patient data. In addition, data may be omitted in some cases. CLINICAL DECISIONS SHOULD BE BASED ON THE PRIMARY CLINICAL RECORDS. [employer] [facility]. provides no warranty or guarantee of the accuracy or completeness of information in this document.
--- NOTE | 2023-10-22 13:06 | CT_ITS ---
The [address] [address] Patient Name: WELLINGTON LANDIN MRN: [id number] date: 1990 Sex: F Assigned Patient Location: ER Current Patient Location: ER Accession/Order Number: [id number] Exam Date: 10/22/2023 13:35 Report Date: 10/22/2023 13:59 At the request of: JONNY PAULINO Procedure: CT head/brain wo con EXAM: CT head/brain wo con HISTORY: Severe HATHAWAY COMPARISON: None. TECHNIQUE: Axial CT images were obtained of the head without intravenous contrast. Multiplanar reconstructions were performed. FINDINGS: No acute intracranial hemorrhage. No acute loss of kramer/white differentiation. The ventricles and sulci are normal in appearance. The osseous structures are unremarkable. No soft tissue abnormality identified. The paranasal sinuses and mastoid air cells are clear. CT/CT head/brain wo con IMPRESSION: 1. No acute intracranial abnormality. Electronically authenticated by: KATYA HAQUE Date: 10/22/2023 13:59
--- NOTE | 2023-10-22 13:08 | ED.GENADUL1 ---
HPI - General Adult General Chief complaint: Headache Stated complaint: Migraine Time Seen by Provider: 10/22/23 13:01 Source: patient Mode of arrival: walk-in Limitations: no limitations History of Present Illness HPI narrative: 33 year old female presents to the ED with a left frontal headache. Onset was 10/20/23. States it is the worst headache of her life. She has hx migraines, but this one feels different. She has had N/V which developed last night. Denies fever, vision changes, weakness, dizziness. Denies neck pain/stiffness. Denies CP, SOB, abd pain. Rates her pain 10/10 at this time. Denies chance of . States her is driving her home today. Related Data Home Medications Medication Instructions Recorded Confirmed metoprolol tartrate 25 mg tablet 25 mg PO DAILY 09/06/23 10/22/23 sertraline 100 mg tablet 100 mg PO Q24H 09/06/23 10/22/23 bupropion HCl 150 mg 24 hr tablet, 150 mg PO DAILY 10/20/23 10/22/23 extended release cetirizine 10 mg tablet 10 mg PO DAILY 10/20/23 10/22/23 methocarbamol 500 mg tablet 1,000 mg PO Q6H PRN headache 10/22/23 10/22/23 Previous Rx's Medication Instructions Recorded rxbcxezqmg-ebanbsuipebpq-rnjsfrsf 1 cap PO Q6H PRN pain #20 caps 09/06/23 50 mg-300 mg-40 mg capsule (Fioricet) benzonatate 100 mg capsule 100 mg PO TID PRN cough #20 caps 10/20/23 doxycycline hyclate 100 mg capsule 100 mg PO BID 10 days #20 caps 10/20/23 Allergies Allergy/AdvReac Type Severity Reaction Status Date / Time nalbuphine [From Nubain] Allergy Severe Verified 10/22/23 12:43 hydrocodone [From Vicodin] AdvReac Severe Vomiting Verified 10/22/23 12:43 Review of Systems ROS Constitutional Reports: chills; Denies: fever Ears, nose, mouth, and throat Reports: nasal discharge and nasal congestion; Denies: throat pain or neck pain Cardiovascular Denies: chest pain Respiratory Denies: shortness of breath Gastrointestinal Reports: nausea and vomiting; Denies: abdominal pain or diarrhea Musculoskeletal Denies: back pain or neck pain Integumentary/Breast Denies: rash Neurological Reports: headache; Denies: numbness in extremities, weakness in extremities, lack of coordination, dizziness or slurred speech PFSH PFSH Social History Smoking status: Never smoker Exam Constitutional Vital Signs, click to edit/add: Last Vital Signs Temp 98.4 F 10/22/23 12:45 Pulse 102 H 10/22/23 12:45 Resp 18 10/22/23 12:45 BP 121/89 10/22/23 12:45 Pulse Ox 98 10/22/23 12:45 O2 Del Method Room Air 10/22/23 12:45 Common normals: no apparent distress and oriented x3 General appearance: cooperative HENMT Face and sinus: normal facial exam Nose: external nose normal Mouth: oral and palatal mucosa normal, lip normal and tongue normal Neck & C-Spine Common normals: full ROM, supple and no meningeal signs Chest Chest: symmetrical chest wall rise Respiratory Common normals: normal respiratory effort Effort & inspection: able to speak in complete sentences and symmetric chest movement Cardio Common normals: regular rate Extremity Common normals: normal capillary refill Neuro Common normals: oriented x3, CN's II-XII intact bilaterally, moves all extremities and no focal motor deficits Sensorium/orientation: awake and alert Meningeal signs: no meningeal signs Speech: speech normal Gait (neuro): normal gait Course Vital Signs Vital signs: Vital Signs Temperature 98.4 F 10/22/23 12:45 Pulse Rate 102 H 10/22/23 12:45 Respiratory Rate 18 10/22/23 12:45 Blood Pressure 121/89 10/22/23 12:45 Pulse Oximetry 98 10/22/23 12:45 Oxygen Delivery Method Room Air 10/22/23 12:45 Temperature 98.4 F 10/22/23 12:45 Pulse Rate 102 H 10/22/23 12:45 Respiratory Rate 18 10/22/23 12:45 Blood Pressure 121/89 10/22/23 12:45 Pulse Oximetry 98 10/22/23 12:45 Oxygen Delivery Method Room Air 10/22/23 12:45 Medical Decision Making MDM Narrative Medical decision making narrative: Head CT was negative for acute findings. She was given IV fluids, Reglan, Benadryl, and Decadron with improvement in her symptoms. She was comfortable being discharged home. Follow up with pcp for a recheck, further evaluation and treatment. Medical Records Medical records reviewed: Yes I reviewed the patient's medical records Imaging Data CT scan - head: Attestation: I have reviewed the pertinent imaging results. Radiologist's impression: Procedure: CT head/brain wo con EXAM: CT head/brain wo con HISTORY: Severe HATHAWAY COMPARISON: None. TECHNIQUE: Axial CT images were obtained of the head without intravenous contrast. Multiplanar reconstructions were performed. FINDINGS: No acute intracranial hemorrhage. No acute loss of kramer/white differentiation. The ventricles and sulci are normal in appearance. The osseous structures are unremarkable. No soft tissue abnormality identified. The paranasal sinuses and mastoid air cells are clear. CT/CT head/brain wo con IMPRESSION: 1. No acute intracranial abnormality. Electronically authenticated by: KATYA HAQUE Date: 10/22/2023 13:59 Discharge Plan Discharge Chief Complaint: Headache Clinical Impression: Headache Patient Disposition: Home, Self-Care Time of Disposition Decision: 14:51 Condition: Good Mode of Transportation: Private Vehicle Prescriptions / Home Meds: No Action bupropion HCl 150 mg tablet extended release 24 hr 150 mg PO DAILY cetirizine 10 mg tablet 10 mg PO DAILY doxycycline hyclate 100 mg capsule 100 mg PO BID 10 Days Qty: 20 0RF benzonatate 100 mg capsule 100 mg PO TID PRN (Reason: cough) Qty: 20 0RF metoprolol tartrate 25 mg tablet 25 mg PO DAILY sertraline 100 mg tablet 100 mg PO Q24H [id number]-[id number] [Fioricet] 50-300-40 mg capsule 1 cap PO Q6H PRN (Reason: pain) Qty: 20 0RF methocarbamol 500 mg tablet 1,000 mg PO Q6H PRN (Reason: headache) Instructions: Acute Headache (DC), Acute Nausea and Vomiting (ED) Stand Alone Forms: Portal Instructions Referrals: [facility] JOY [Primary Care Provider] - 1 week Discharge Date/Time: 10/22/23 15:11
[2023-10-22] MEDS: 0.9 % SODIUM CHLORIDE 1,000 ML 999 ML IV (13:24)
[2023-10-22] MEDS: DEXAMETHASONE SOD PHOS 10 MG/ML VIAL IV (13:24)
[2023-10-22] MEDS: METOCLOPRAMIDE HCL 10 MG/2 ML VIAL IVP (13:24)
[2023-10-22] MEDS: DIPHENHYDRAMINE HCL 50 MG/ML (1ML) VIAL 25 MG IV (13:24)
== END 2023-10-22 15:11 | disposition home or self-care (01) ==
PROVIDERS: Emergency Provider Emergency Medicine; PCP Family Medicine
DX: R51.9 Headache, unspecified (principal)
CPT/HCPCS: 70450; 96361; 96374; 96375; 99285; J1100

== ENCOUNTER 2025-02-09 08:52 | Outpatient (RCR) | payer BC, SELFPAY | END 2025-03-18 16:31 | disposition home or self-care (01) | LOC: OT 08:52 | PROVIDERS: PCP Family Medicine; Visit Provider Family Medicine | DX: G43.909 Migraine, unspecified, not intractable, without status migrainosus (principal); M25.539 Pain in unspecified wrist; Z78.9 Other specified health status; Z68.30 Body mass index [BMI] 30.0-30.9, adult | CPT/HCPCS: 97014; 97035; 97110; 97165; 97530 ==